=== PATIENT | female | born 1940 | race Caucasian/White ===

== ENCOUNTER 2022-09-01 00:54 | Inpatient (IN) | payer MEDICARE, BC, SELFPAY ==
[2022-09-01] VITALS (23 sets, daily range): BP systolic 98–165; BP diastolic 54–75; PULSE 84–124; RESP 16–22; TEMP 36.8–37.4; O2SAT 89–98; BMI 30.2
--- NOTE | ~2022-09-01 | CT_ITS ---
EXAMINATION: CT brain wo con DATE: 09/01/2022 01:43 INDICATION: Confusion. TECHNIQUE: Computed tomography (CT) of the head was performed without intravenous contrast. The mA wa s adjusted according to patient size. Iterative reconstruction technique was employed. The dose-lengt h product was 605.33 mGy-cm. COMPARISON: None FINDINGS: There are old infarcts in the bilateral basal ganglia. There are scattered areas of low att enuation in the cerebral white matter. There is no intracranial hemorrhage, acute infarction, or abno rmal intracranial mass lesion. There is ex vacuo dilatation of right lateral ventricle. There is mild mucosal thickening in the paranasal sinuses. The mastoid air cells are normal. IMPRESSION: 1. Old infarcts in the bilateral basal ganglia. 2. Moderate nonspecific cerebral white matter disease, which likely represents chronic small vessel i schemic disease. Reviewed, dictated and finalized at location A. IMPRESSION: 1. Old infarcts in the bilateral basal ganglia. 2. Moderate nonspecific cerebral white matter disease, which likely represents chronic small vessel ischemic disease.
--- NOTE | ~2022-09-01 | US_ITS ---
EXAMINATION: US venous doppler LE RT DATE: 09/03/2022 09:14 INDICATION: Right lower limb pain. TECHNIQUE: Grayscale ultrasound images without and with compression and Doppler ultrasound images of the right lower extremity veins were obtained. COMPARISON: None. FINDINGS: The visualized portions of right common femoral vein, profunda (deep) femoral vein, femoral vein, pop liteal vein, peroneal veins, and posterior tibial veins are patent. IMPRESSION: 1. No deep venous thrombosis. Reviewed, dictated and finalized at location B.
--- NOTE | ~2022-09-01 | XR_ITS ---
EXAMINATION: XR chest 1V portable DATE: 09/01/2022 01:43 INDICATION: Altered mental status. Tachypnea. Tachycardia. TECHNIQUE: A single frontal view of the chest was obtained. COMPARISON: None. FINDINGS: Calcified left lung nodules and calcified left hilar lymph nodes are consistent with old gr anulomatous disease. Syed B-lines are noted, consistent with mild pulmonary edema. No pleural effus ion or pneumothorax. The heart size is normal. There is an old healed fracture of left clavicle. IMPRESSION: 1. Mild pulmonary edema. Reviewed, dictated and finalized at location A. IMPRESSION: 1. Mild pulmonary edema.
--- NOTE | 2022-09-01 01:04 | ECG_ITS ---
Measurements Intervals [place] Rate: 121 P: 48 CO: 156 QRS: -9 QRSD: 81 T: 51 QT: 312 QTc: 444 Interpretive Statements SINUS TACHYCARDIA WITH OCCASIONAL SUPRAVENTRICULAR PREMATURE COMPLEXES LOW-VOLTAGE QRS IN PRECORDIAL LEADS NONSPECIFIC ST ABNORMALITY BASELINE ARTIFACT BORDERLINE ECG NO PREVIOUS ECG AVAILABLE FOR COMPARISON Electronically Signed On 09-03-2022 14:28:11 CDT by Lars Dudley M.D.
[2022-09-01 01:17] LABS: Glucose Point of Care 333 mg/dl (65-105)
--- NOTE | 2022-09-01 01:17 | ED.GENADULT ---
HPI - General Adult General Chief complaint: Weakness Stated complaint: Confusion Time Seen by Provider: 09/01/22 01:03 History of Present Illness HPI narrative: Karen is an 81F with a PMH of DMII, anemia, long covid (tachypnea), CHF, and CAD presented to the ED via EMS for altered mental status. She was oriented to self only and could not give additional history. Related Data Home Medications Medication Instructions Recorded Confirmed carvedilol 25 mg tablet 12.5 mg PO Q12H 09/02/22 09/02/22 cyanocobalamin (vitamin B-12) 1,000 mcg PO DAILY 09/02/22 09/02/22 1,000 mcg tablet ferrous sulfate 325 mg (65 mg 325 mg PO DAILY 09/02/22 09/02/22 iron) tablet furosemide 20 mg tablet 10 mg PO DAILY 09/02/22 09/02/22 glipizide 5 mg tablet 5 mg PO DAILY 09/02/22 09/02/22 pravastatin 40 mg tablet 40 mg PO DAILY 09/02/22 09/02/22 sitagliptin 100 mg tablet (Januvia) 100 mg PO DAILY 09/02/22 09/02/22 tramadol 50 mg tablet 50 mg PO Q6H PRN Pain (Scale Score 09/02/22 09/02/22 4-6) triamcinolone acetonide 0.5 % 1 applic topical BID tawny legs 09/02/22 09/02/22 topical cream Allergies Allergy/AdvReac Type Severity Reaction Status Date / Time adhesive tape Allergy Unknown Verified 09/01/22 01:06 Review of Systems Review of Systems: ROS unobtainable: Yes unobtainable due to mental status [facility] Past Medical History Medical History (Updated 09/20/22 @ 08:19 by Johnny Wright DO) Altered mental status Cellulitis of right leg Hypertension UTI (urinary tract infection) Social History Social History Smoking status: Never smoker Alcohol intake: never Substance use: never Substance use type: does not use Spiritual care concerns: No Exam Const: General: confusion and ill appearing chronically Nutritional Appearance: well nourished Orientation/consciousness: patient oriented x3 HENMT: Head: normal to inspection Ears: external ears normal General nose exam: Normal external nose present Face and sinus: normal facial exam Mouth: Yes dry mucous membranes Eyes: Conjunctivae: conjunctivae normal Pupils: Equal, round and reactive pupils present EOM: EOMs intact bilaterally Neck: Neck: normal visual inspection Resp: Effort & Inspection: labored Other: Tachypnea with lungs clear to auscultation bilaterally Cardio: Rate: tachycardic Rhythm: regular rhythm Heart sounds: no murmurs GI: Other: Normal to inspection, normal bowel sounds, No TTP and no guarding : Other: No CVA tenderness Skin: General skin exam: normal color Other: Significant skin tenting Neuro: General: moves all extremities, no focal motor deficits and CN's II-XI intact bilaterally Other: Oriented to self only Extrem: Other: No deformity Course Course Emergency Course: Patient was evaluated as she was brought into the ED. Ordered labs, CT, CXR, EKG, blood cultures and UA and a liter of NS as well as ceftriaxone and azithromycin EKG showed sinus tachycardia with a rate of 121, possible LAD, premature supraventricular complexes. Interpretation is difficult d/t significant baseline interference in several leads Preliminary CT head showed no acute intracranial abnormality and old scattered encephalomalacia. Labs showed no leukocytosis, normal coags, hypoxia on ABG and low CO2, glucose of 333 and BNP of 2918 UA showed blood, nitrites and 3+ leuk esterase. After some fluids she became more alert. We discussed goals of care with her and her family. She is not interested in intubation, pressors and wants to be a DNR but she is amenable to fluids and antibiotics. I discussed the case with Isamar that accepted for admission. Will continue fluids, antibiotics and admit for further care. Vital Signs Vital signs: Vital Signs Pulse Oximetry 89 L 09/01/22 01:08 Temperature 97.2 F L 09/04/22 04:00 Pulse Rate 82 09/04/22 04:00 Respiratory Rate 15
--- NOTE | 2022-09-01 01:46 | PC.NURSE ---
attempted to obtain history, pt & family poor historians
[2022-09-01 02:12] LABS: Base Excess ABG -3.6 mmol/L (0-2); HCO3 ABG 20.2 mmol/L (23-29); Oxygen Content ABG 15.7 %vol (16.0-22.0); Oxyhemoglobin 89.3 % (94-100); PCO2 ABG 32.9 mmHg (35-45); Total Hemoglobin 12.5 g/dL (12.0-18.0); pH ABG 7.41 (7.35-7.45)
[2022-09-01 02:13] LABS: Basophils Absolute Auto 0.02 K/mm3 (0.00-0.10); Basophils Percent Auto 0.2 % (0.0-1.0); Eosinophils Absolute Auto 0.01 K/mm3 (0.02-0.50); Eosinophils Percent Auto 0.1 % (1.0-6.0); Hematocrit 37.2 % (35.0-42.0); Hemoglobin 11.5 g/dL (11.7-13.8); Immature Granulocyte Absolute 0.08 K/mm3 (0.00-0.00); Immature Granulocyte Percent A 0.9 % (0.0-0.0); Lymphocytes Absolute Auto 0.34 K/mm3 (1.10-4.50); Lymphocytes Percent Auto 3.9 % (18.0-42.0); Mean Corpuscular HGB Conc 30.9 g/dL (32.0-36.0); Mean Corpuscular Hemoglobin 26.3 pg (27.0-31.0); Mean Corpuscular Volume 85.1 fL (78.0-102.0); Mean Platelet Volume 10.4 fl (9.2-11.8); Monocytes Absolute Auto 0.22 K/mm3 (0.10-0.90); Monocytes Percent Auto 2.5 % (2.0-11.0); Neutrophils Absolute Auto 8.1 K/mm3 (1.7-7.2); Neutrophils Percent Auto 92.4 % (50.0-70.0); Platelet Count Result 185 K/mm3 (150-420); Red Blood Count 4.37 M/mm3 (4.20-5.40); Red Cell Distribution Width 15.7 % (11.6-14.4); White Blood Count 8.8 K/mm3 (4.8-10.8)
[2022-09-01 02:14] LABS: Modified Allen's Test Pass; Site Drawn RIGHT BRACHIAL
[2022-09-01 02:15] LABS: Device ROOM AIR
[2022-09-01 02:21] LABS: Add Urine Microscopic? YES; Appearance Urine Clear (Clear); Bilirubin Urine Negative (Negative); Blood Urine 3+ (Negative); Color Urine Yellow (Yellow); Glucose Urine UA 3+ (Negative); Ketones Urine 1+ (Negative); Leukocyte Esterase Ur 3+ (Negative); Nitrate Urine Positive (Negative); Protein Urine 1+ (Negative); Urobilinogen Urine 0.2 mg/dL (0.2-1.0)
[2022-09-01] MEDS: SODIUM CHLORIDE 0.9% IV 1,000 ML 999 ML IV CONT (02:22)
[2022-09-01 02:26] LABS: RBC Urine >75 /hpf (0-2); Squamous Epithelial Cell Urine None seen /hpf (Few); WBC Urine >75 /hpf (0-3)
[2022-09-01 02:27] LABS: Bacteria Urine 3+ /hpf
[2022-09-01 02:30] LABS: Amphetamine Screen Urine Negative (Negative); Barbiturate Screen Urine Negative (Negative); Benzodiazepines Screen Urine Negative (Negative); Cannabinoid Screen Urine Negative (Negative); Cocaine Screen Urine Negative (Negative); INR 1.1; Methadone Screen Urine Negative (Negative); Opiate Screen Urine Negative (Negative); Phencyclidine Screen Urine Negative (Negative); Prothrombin Time 11.6 Seconds (9.50-12.10)
[2022-09-01 02:36] LABS: Influenza Control Valid (Valid)
[2022-09-01 02:46] LABS: Alanine Aminotransferase 14 U/L (14-59); Albumin Level 2.5 g/dL (3.4-5.0); Alkaline Phosphatase 84 U/L (46-116); Anion Gap 9 mmol/L (8-16); Aspartate Amino Transferase 15 U/L (15-37); Bilirubin,Total 0.6 mg/dL (0.00-1.00); Blood Urea Nitrogen 35 mg/dL (7-18); Calcium 8.3 mg/dL (8.5-10.1); Carbon Dioxide 25 mmol/L (21-32); Chloride 102 mmol/L (98-108); Estimated Glomerular Filt Rate 33; Glucose 302 mg/dL (70-99); Magnesium 1.7 mg/dL (1.8-2.4); NT Pro B Type Natriuretic Pept 2918 pg/mL (0-450); Osmolality Calculated 301 mOsm/kg (285-295); Potassium 3.8 mmol/L (3.5-5.1); Sodium 136 mmol/L (136-145); Thyroid Stimulating Hormone 2.03 uIU/mL (0.36-3.74); Total Protein 7.4 g/dL (6.4-8.2); Troponin I 57.5 ng/L (0.00-60.4)
[2022-09-01 02:56] LABS: Ethanol < 3 mg/dL (0-6)
[2022-09-01 03:21] LABS: SARS-CoV-2 Ag Negative (Negative)
--- NOTE | 2022-09-01 03:35 | PC.NURSE ---
pt admitted with bolus running with approx 300ml left to infuse
[2022-09-01] MEDS: SODIUM CHLORIDE 0.9% IV 1,000 ML 150 ML IV CONT (04:09)
--- NOTE | 2022-09-01 04:33 | ADMGEN ---
This patient, Karen Anand, was admitted to 2nd Floor Room 226-2. Patient/family oriented to hospital policies and general routines including ID bracelet, bed and alarms, visiting hours, pain management, procedures, bathroom and other care routines, personal items, smoking policy, room service/diet, and visiting hours. Information on how to activate the Rapid Response Team has been discussed. Patient/Family are encouraged to report perceived risks to care and to ask questions if they do not understand what they are told or what they should do. Pt is A&O x3 on arrival to unit, she is able to answer questions appropriately, pt reports feeling very weak and unable to walk or get out of bed recently and son called EMS. Pt is on tlelmetry c Stach noted on monitor and O2 in place via 2L NC c Spo2 at 96%. Pt has call bowen in place at side and encouraged to call if needed. Pt states understanding.
[2022-09-01 08:25] LABS: Glucose Point of Care 337 mg/dl (65-105)
--- NOTE | 2022-09-01 08:29 | PC.NURSE ---
mechanical striper aware of blood sugar 337 and no coverage. unable to verify meds til after 10 am d/t pharmacy not open and patient only knows she is on metformin.
--- NOTE | 2022-09-01 09:47 | PC.NURSE ---
jt from pt aware of needing a pt/ot eval
--- NOTE | 2022-09-01 10:31 | PM.IMHP ---
H&P: HPI History of Present Illness Date/Time: 09/01/22 10:31 Chief Complaint: confusion , UTI Narrative: This is a 82-year-old female that was admitted to the hospital for urinary tract infection and confusion. She has a past medical history of uti,CHF, diabetes, blood clots to the legs, she has increased confusion according to family with inability to get around as well. [place] staying [place]. She is alert and orientated for me with some confusion noted. Patient when assess has very hot with erythema noted to her right leg more than likely the source to her infection . Blood cultures are still pending Patient has remained a febrile and she has been up to chair with assistance. Patient complains of leg pain and painful to touch . We will start patient on IV medication awaiting cultures and follow patient labs Review of Systems Review of Systems: confusion , UTI, Hypertension , diabetes All systems reviewed & are unremarkable except as noted in HPI and below PMFSH Past Medical History Medical History (Updated 09/05/22 @ 11:50 by Mirtha Raymundo NP) Altered mental status Cellulitis of right leg Hypertension UTI (urinary tract infection) Social History Social History Smoking status: Never smoker Alcohol intake: never Substance use: never Substance use type: does not use Spiritual care concerns: No Meds Home Medications and Allergies Home Medications Medication Instructions Recorded Confirmed Type carvedilol 25 mg tablet 12.5 mg PO Q12H 09/02/22 09/02/22 History cyanocobalamin (vitamin B-12) 1,000 mcg PO DAILY 09/02/22 09/02/22 History 1,000 mcg tablet ferrous sulfate 325 mg (65 mg 325 mg PO DAILY 09/02/22 09/02/22 History iron) tablet furosemide 20 mg tablet 10 mg PO DAILY 09/02/22 09/02/22 History glipizide 5 mg tablet 5 mg PO DAILY 09/02/22 09/02/22 History pravastatin 40 mg tablet 40 mg PO DAILY 09/02/22 09/02/22 History sitagliptin 100 mg tablet (Januvia) 100 mg PO DAILY 09/02/22 09/02/22 History tramadol 50 mg tablet 50 mg PO Q6H PRN Pain (Scale Score 09/02/22 09/02/22 History 4-6) triamcinolone acetonide 0.5 % 1 applic topical BID tawny legs 09/02/22 09/02/22 History topical cream apixaban 5 mg tablet (Eliquis) 2.5 mg PO BID #30 tabs 09/04/22 09/02/22 Rx cefdinir 300 mg capsule 300 mg PO Q12HR #20 caps 09/04/22 Rx Allergies Allergy/AdvReac Type Severity Reaction Status Date / Time adhesive tape Allergy Unknown Verified 09/01/22 01:06 Vital Signs Vital Signs - 24 hr 09/01/22 01:09 09/01/22 02:25 09/01/22 01:08 Temperature 98.5 F Pulse Rate 120 H Respiratory Rate 22 H Blood Pressure 165/75 H Pulse Oximetry 92 97 89 L Oxygen Delivery Room Air Nasal Cannula Oxygen Flow Rate 2 Fraction of Inspired Oxygen 09/01/22 01:15 09/01/22 01:15 09/01/22 02:24 Temperature Pulse Rate Respiratory Rate Blood Pressure 158/70 H 104/57 L Pulse Oximetry 89 L 89 L 91 Oxygen Delivery Oxygen Flow Rate Fraction of Inspired Oxygen 09/01/22 02:25 09/01/22 02:30 09/01/22 02:31 Temperature Pulse Rate Respiratory Rate Blood Pressure 117/61 Pulse Oximetry 89 L 96 96 Oxygen Delivery Oxygen Flow Rate 2 Fraction of Inspired Oxygen 09/01/22 02:45 09/01/22 02:46 09/01/22 03:00 Temperature Pulse Rate Respiratory Rate Blood Pressure 116/54 L 108/64 Pulse Oximetry 94 95 96 Oxygen Delivery Oxygen Flow Rate 2 Fraction of Inspired Oxygen 09/01/22 03:01 09/01/22 03:11 09/01/22 03:15 Temperature Pulse Rate Respiratory Rate Blood Pressure 110/59 L Pulse Oximetry 97 98 97 Oxygen Delivery Nasal Cannula Oxygen Flow Rate 2 Fraction of Inspired Oxygen 09/01/22 03:16 09/01/22 04:00 09/01/22 04:30 Temperature Pulse Rate 124 H 107 H 94 Respiratory Rate 20 Blood Pressur
[2022-09-01] MEDS: ceFAZolin 2 GM/D5W 50 ML 2 GM/50 ML BAG IVPB ×2 (10:48→17:24)
[2022-09-01 11:54] LABS: Glucose Point of Care 397 mg/dl (65-105)
[2022-09-01] MEDS: SODIUM CHLORIDE 0.9% IV 1,000 ML 75 ML IV CONT (14:44)
[2022-09-01] MEDS: FUROSEMIDE INJ 40 MG/4 ML VIAL IV PUSH (14:45)
[2022-09-01 20:31] LABS: Glucose Point of Care 204 mg/dl (65-105)
[2022-09-01 21:36] LABS: Glucose Point of Care 166 mg/dl (65-105)
[2022-09-01] MEDS: ACETAMINOPHEN 325 MG TABLET 650 MG PO (21:37)
[2022-09-02] VITALS (11 sets, daily range): BP systolic 111–138; BP diastolic 65–80; PULSE 75–94; RESP 14–18; TEMP 36.3–36.7; O2SAT 95–100
--- NOTE | 2022-09-02 00:58 | PC.NURSE ---
Chemistry called with a positive blood culture result from [facility]. Results indicate gram positive cocci in chains, flagged as critical abnormal. Called ASSOCIATE [employer] and reported these findings. [employer] asked about antibiotics patient is currently taking, and stated that she would make any changes necessary in the morning.
--- NOTE | 2022-09-02 01:13 | PC.NURSE ---
Chemistry called, and indicated that patient has gram positive cocci in chains present in both anaerobic and aerobic bottles, in both samples. PCT notified.
[2022-09-02] MEDS: ceFAZolin 2 GM/D5W 50 ML 2 GM/50 ML BAG IVPB ×3 (01:34→18:13)
[2022-09-02] MEDS: SODIUM CHLORIDE 0.9% IV 1,000 ML 75 ML IV CONT (04:00)
[2022-09-02 05:13] LABS: Hematocrit 32.5 % (35.0-42.0); Mean Corpuscular HGB Conc 30.8 g/dL (32.0-36.0); Mean Corpuscular Hemoglobin 26.5 pg (27.0-31.0); Mean Platelet Volume 10.4 fl (9.2-11.8); Platelet Count Result 170 K/mm3 (150-420); Red Blood Count 3.78 M/mm3 (4.20-5.40); Red Cell Distribution Width 15.9 % (11.6-14.4); White Blood Count 10.8 K/mm3 (4.8-10.8)
[2022-09-02 05:48] LABS: Alanine Aminotransferase 7 U/L (14-59); Alkaline Phosphatase 60 U/L (46-116); Anion Gap 7 mmol/L (8-16); Aspartate Amino Transferase 11 U/L (15-37); Bilirubin,Total 0.2 mg/dL (0.00-1.00); Blood Urea Nitrogen 37 mg/dL (7-18); Calcium 7.6 mg/dL (8.5-10.1); Carbon Dioxide 27 mmol/L (21-32); Chloride 104 mmol/L (98-108); Estimated CRCL calculation 29 ml/min; Estimated Glomerular Filt Rate 32; Glucose 152 mg/dL (70-99); Osmolality Calculated 297 mOsm/kg (285-295); Potassium 4.2 mmol/L (3.5-5.1); Sodium 138 mmol/L (136-145); Total Protein 6.1 g/dL (6.4-8.2)
[2022-09-02 08:03] LABS: Glucose Point of Care 156 mg/dl (65-105)
[2022-09-02] MEDS: FUROSEMIDE INJ 40 MG/4 ML VIAL 20 MG IV PUSH (09:27)
--- NOTE | 2022-09-02 10:17 | PM.IMPN ---
Progress Note: A&P Assessment and Plan (1) Diabetes: Code(s): E11.9 - Type 2 diabetes mellitus without complications Status: Acute Assessment and Plan: Monitor blood sugars Hold all oral hypoglycemic Sliding scale (2) Hypertension: Code(s): I10 - Essential (primary) hypertension Status: Acute Assessment and Plan: Monitor blood pressure Give home medications Adjust medications accordingly (3) Cellulitis of right leg: Code(s): L03.115 - Cellulitis of right lower limb Status: Acute Assessment and Plan: Right leg red hot to touch and swollen Started on cefazolin every 8 hours Positive blood cultures gram-positive cocci in chains Consult infectious disease pharmacist Dopplers of bilateral leg in a.m. On oxygen possibly due to seen sepsis we will continue to wean (4) UTI (urinary tract infection): Code(s): N39.0 - Urinary tract infection, site not specified Status: Acute Assessment and Plan: Rocephin initiated X2 doses discontinued patient currently on cefazolin (5) Altered mental status: Code(s): R41.82 - Altered mental status, unspecified Status: Acute Assessment and Plan: More than likely due to bacteremia Continue IV antibiotics Continue to monitor cognition Patient high risk for falls (6) Dyspnea: Code(s): R06.00 - Dyspnea, unspecified Status: Acute Assessment and Plan: On oxygen we will continue to wean Possibly short of breath due to bacteremia of the blood Subjective Date/time seen: 09/02/22 10:17 Interval history: Patient slightly confused today in bed denies any pain. Patient is on oxygen at 1 L we will continue to wean. Patient will get up in recliner chair her leg looks slightly better than yesterday no we will continue to monitor patient blood cultures are positive on IV antibiotics we will continue to monitor we will discuss plan with infectious disease pharmacist and have Dopplers completed in the a.m. Review of Systems Review of Systems: leg pain, confusion, All systems reviewed & are unremarkable except as noted in HPI and below Exam Narrative: GENERAL:Well-appearing, obese, and in no acute distress. HEAD:Normocephalic, atraumatic. EYES: PERRLA ENT: Nares clear, no rhinorrhea. Mucous membranes moist. NECK: Supple. CHEST: Clear to auscultation. No respiratory distress. HEART: Regular rate and rhythm. decreased peripheral pulses. ABDOMEN: Soft, nontender, nondistended, normal active bowel sounds. EXTREMITIES: Normal range of motion. 2+ pitting edema right lower extremity hot to touch with erythema left leg pink with some peripheral vascular disease noted SKIN: Warm, dry, no rash. NEURO: No focal deficits. Alert and oriented x1-2. Objective Data Vital Signs Vital Signs: Vital Signs - 24 hr 09/01/22 12:00 09/01/22 14:00 09/01/22 16:00 Temperature 98.2 F Pulse Rate 84 94 85 Respiratory Rate 16 Blood Pressure 104/60 Pulse Oximetry 95 Oxygen Delivery Room Air Oxygen Flow Rate 09/01/22 20:00 09/01/22 20:00 09/01/22 22:00 Temperature 98.9 F Pulse Rate 92 85 91 Respiratory Rate 16 16 Blood Pressure 98/66 L Pulse Oximetry 98 98 Oxygen Delivery Nasal Cannula Nasal Cannula Oxygen Flow Rate 1 1 09/02/22 00:00 09/02/22 04:00 09/02/22 06:00 Temperature 97.4 F L Pulse Rate 94 83 82 Respiratory Rate 18 Blood Pressure 127/65 Pulse Oximetry 98 Oxygen Delivery Nasal Cannula Oxygen Flow Rate 1 09/02/22 08:00 Temperature Pulse Rate 90 Respiratory Rate Blood Pressure Pulse Oximetry Oxygen Delivery Oxygen Flow Rate Intake/Output Intake/Output: Intake & Output 08/30/22 08/31/22 09/01/22 09/02/22 23:59 23:59 23:59 23:59 Intake Total 2820 1705 Output Total 600 550 Balance 2220 1155 Meds/Results Medications: Active Medications Generic Name Dose Route Start Last Admin Tra
[2022-09-02] MEDS: APIXABAN 2.5 MG TABLET PO (11:16)
[2022-09-02] MEDS: carvediloL 12.5 MG TABLET PO ×2 (11:17→21:22)
[2022-09-02 11:41] LABS: Glucose Point of Care 210 mg/dl (65-105)
--- NOTE | 2022-09-02 11:49 | PC.NURSE ---
Patient up to bedside chair with arturo lauren and assist of 2
[2022-09-02 16:24] LABS: Glucose Point of Care 260 mg/dl (65-105)
[2022-09-02] MEDS: ACETAMINOPHEN 325 MG TABLET 650 MG PO (21:22)
[2022-09-02 21:27] LABS: Glucose Point of Care 243 mg/dl (65-105)
[2022-09-03] VITALS: BP 113/77; PULSE 78; PULSE 82; RESP 16; TEMP 36.4; O2SAT 96
[2022-09-03] MEDS: ceFAZolin 2 GM/D5W 50 ML 2 GM/50 ML BAG IVPB ×2 (01:27→11:24)
[2022-09-03 04:00] VITALS: BP 132/75; PULSE 81; PULSE 83; RESP 16; TEMP 36.1; O2SAT 95
[2022-09-03 05:24] LABS: Basophils Absolute Auto 0.04 K/mm3 (0.00-0.10); Basophils Percent Auto 0.5 % (0.0-1.0); Eosinophils Absolute Auto 0.13 K/mm3 (0.02-0.50); Eosinophils Percent Auto 1.6 % (1.0-6.0); Hematocrit 32.5 % (35.0-42.0); Hemoglobin 10.2 g/dL (11.7-13.8); Immature Granulocyte Absolute 0.09 K/mm3 (0.00-0.00); Immature Granulocyte Percent A 1.1 % (0.0-0.0); Lymphocytes Absolute Auto 1.86 K/mm3 (1.10-4.50); Lymphocytes Percent Auto 23.1 % (18.0-42.0); Mean Corpuscular HGB Conc 31.4 g/dL (32.0-36.0); Mean Corpuscular Hemoglobin 26.5 pg (27.0-31.0); Mean Corpuscular Volume 84.4 fL (78.0-102.0); Mean Platelet Volume 10.3 fl (9.2-11.8); Monocytes Percent Auto 9.9 % (2.0-11.0); Neutrophils Absolute Auto 5.1 K/mm3 (1.7-7.2); Neutrophils Percent Auto 63.8 % (50.0-70.0); Platelet Count Result 199 K/mm3 (150-420); Red Blood Count 3.85 M/mm3 (4.20-5.40); Red Cell Distribution Width 15.6 % (11.6-14.4); White Blood Count 8.1 K/mm3 (4.8-10.8)
[2022-09-03 05:35] LABS: Anion Gap 9 mmol/L (8-16); Blood Urea Nitrogen 26 mg/dL (7-18); Calcium 7.6 mg/dL (8.5-10.1); Carbon Dioxide 26 mmol/L (21-32); Chloride 103 mmol/L (98-108); Estimated CRCL calculation 35 ml/min; Estimated Glomerular Filt Rate 40; Glucose 207 mg/dL (70-99); Osmolality Calculated 296 mOsm/kg (285-295); Potassium 3.4 mmol/L (3.5-5.1); Sodium 138 mmol/L (136-145)
[2022-09-03 08:00] VITALS: BP 140/75; PULSE 84; PULSE 86; RESP 14; TEMP 36.8; O2SAT 96
[2022-09-03] MEDS: CYANOCOBALAMIN 1,000 MCG TABLET 1000 MCG PO (08:09)
[2022-09-03 08:15] LABS: Glucose Point of Care 201 mg/dl (65-105)
--- NOTE | 2022-09-03 08:33 | IDPHARM ---
[facility] was consulted by Kathya Raymundo regarding infectious diseases for Karen Anand. Karen Anand is a 82 year old F with concerns regarding bloodstream infection. Background The patient is currently receiving Cefazolin IV.The patient presented with fire truck red cellulitis and notes mention potential UTI. Blood cultures show growth of GPC in chains and urine culture is pending at this time. Additionally, patient with fairly stable WBC at 8.1 today. Spoke with [facility] microbiology department and they state that the isolate from 09/01/22 is positive for beta-hemolytic Group B Streptococcus species. They will be releasing this info into the EMR per the auto claim representative. Per them, sensitivities expected perhaps tomorrow. Assessment/Recommendation/Discussion Spoke twice with provider. First discussion focused on identifying source for these GPC's in chains in the blood and provider believes that this may be a cellulitis source which is showing notable improvement in coloration. Patient's vitals also do not show SIRS criteria being met [97 degrees F, Pulse 81 BPM, Respiratory rate of 16 Breaths/minute, WBC of 8.1 - meeting 0/4 sirs criteria]. Spoke again with provider after speaking with [facility] regarding pathogen identification. Recommended consolidating therapy to ceftriaxone 2g q24h and provider agrees. Thank you for the interesting consult. Moises Smith, PharmD Infectious Disease/Antimicrobial Stewardship Pharmacist 09/03/22; [id number]
--- NOTE | 2022-09-03 08:46 | PM.IMPN ---
Progress Note: A&P Assessment and Plan (1) Diabetes: Code(s): E11.9 - Type 2 diabetes mellitus without complications Status: Acute Assessment and Plan: Monitor blood sugars Hold all oral hypoglycemic Sliding scale (2) Hypertension: Code(s): I10 - Essential (primary) hypertension Status: Acute Assessment and Plan: Monitor blood pressure Give home medications Adjust medications accordingly Pt Eliquis on pts medication say once a day. I called her PCP Dr. Severino office and they informed me she should take is twice a day (3) Cellulitis of right leg: Code(s): L03.115 - Cellulitis of right lower limb Status: Acute Assessment and Plan: Right leg red hot to touch and swollen Started on cefazolin every 8 hours Positive blood cultures gram-positive cocci in chains Consult infectious disease pharmacist changed from cefazolin to Rocephin 2g q 24 after discussion with infectious disease pharmacist Dopplers of bilateral leg in a.m. On oxygen possibly due to seen sepsis we will continue to wean (4) UTI (urinary tract infection): Code(s): N39.0 - Urinary tract infection, site not specified Status: Acute Assessment and Plan: Rocephin initiated X2 doses discontinued patient currently on cefazolin (5) Altered mental status: Code(s): R41.82 - Altered mental status, unspecified Status: Acute Assessment and Plan: More than likely due to bacteremia Continue IV antibiotics Continue to monitor cognition Patient high risk for falls (6) Dyspnea: Code(s): R06.00 - Dyspnea, unspecified Status: Acute Assessment and Plan: On oxygen we will continue to wean Possibly short of breath due to bacteremia of the blood Subjective Date/time seen: 09/03/22 08:46 Interval history: Patient is less confused today and she has been weaned off of the oxygen. Patient is feeding herself. I called patient pcp as she indicates she is to be on elequis 2.5mg daily. DR. Severino office has informed me she should be taking the medication twice a day. Patient leg is looking a lot better. I also spoke with infectious disease doctor who called the lab. We will be switching patient from Cefazolin to Rocephin 2gm daily at this time. Patient kidney function continues to improve at this time. 09/02/2022atient slightly confused today in bed denies any pain. Patient is on oxygen at 1 L we will continue to wean. Patient will get up in recliner chair her leg looks slightly better than yesterday no we will continue to monitor patient blood cultures are positive on IV antibiotics we will continue to monitor we will discuss plan with infectious disease pharmacist and have Dopplers completed in the a.m. Exam Narrative: GENERAL:Well-appearing, obese, and in no acute distress. HEAD:Normocephalic, atraumatic. EYES: PERRLA ENT: Nares clear, no rhinorrhea. Mucous membranes moist. NECK: Supple. CHEST: Clear to auscultation. No respiratory distress. HEART: Regular rate and rhythm. decreased peripheral pulses. ABDOMEN: Soft, nontender, nondistended, normal active bowel sounds. EXTREMITIES: Normal range of motion. 1+ pitting edema right lower extremity warm to touch with less erythema and improvement is significant left leg pink with some peripheral vascular disease noted SKIN: Warm, dry, no rash. NEURO: No focal deficits. Alert and oriented x1-2. Objective Data Vital Signs Vital Signs: Vital Signs - 24 hr 09/02/22 11:17 09/02/22 12:00 09/02/22 12:03 Temperature 97.9 F Pulse Rate 75 92 92 Respiratory Rate 14 Blood Pressure 133/80 Pulse Oximetry 100 Oxygen Delivery Room Air Fraction of Inspired Oxygen 09/02/22 16:00 09/02/22 16:00 09/02/22 21:22 Temperature 97.9 F Pulse Rate 90 90 92 Respiratory Rate 14 Blood Pressure 111/73 Pulse Oximetry 100 Oxygen Delivery Room Air Fraction of Inspired Oxygen 1
[2022-09-03] MEDS: TOLNAFTATE 1% POWDER 45 GM BTL 1 APPLIC TOPICAL ×2 (09:10→20:10)
[2022-09-03] MEDS: APIXABAN 2.5 MG TABLET PO ×2 (09:15→20:09)
[2022-09-03] MEDS: FUROSEMIDE INJ 40 MG/4 ML VIAL 20 MG IV PUSH (10:09)
[2022-09-03 12:00] VITALS: BP 150/75; PULSE 78; PULSE 83; RESP 16; TEMP 37.1; O2SAT 96
[2022-09-03 12:04] LABS: Glucose Point of Care 263 mg/dl (65-105)
[2022-09-03 16:00] VITALS: BP 136/83; PULSE 70; PULSE 92; RESP 16; TEMP 36.4; O2SAT 98
[2022-09-03 16:24] LABS: Glucose Point of Care 308 mg/dl (65-105)
[2022-09-03 19:57] LABS: Glucose Point of Care 306 mg/dl (65-105)
[2022-09-03 20:00] VITALS: BP 166/80; PULSE 85; RESP 16; TEMP 36.6; O2SAT 96
[2022-09-03] MEDS: traMADol HCL (*CRX) 50 MG TABLET PO (20:09)
[2022-09-04] VITALS: BP 152/69; PULSE 87; RESP 16; TEMP 36.4; O2SAT 95
[2022-09-04 04:00] VITALS: BP 152/70; PULSE 82; RESP 15; TEMP 36.2; O2SAT 95
[2022-09-04 05:35] LABS: Basophils Absolute Auto 0.04 K/mm3 (0.00-0.10); Basophils Percent Auto 0.6 % (0.0-1.0); Eosinophils Absolute Auto 0.12 K/mm3 (0.02-0.50); Eosinophils Percent Auto 1.8 % (1.0-6.0); Hematocrit 34.1 % (35.0-42.0); Hemoglobin 10.7 g/dL (11.7-13.8); Immature Granulocyte Absolute 0.12 K/mm3 (0.00-0.00); Immature Granulocyte Percent A 1.8 % (0.0-0.0); Lymphocytes Absolute Auto 1.57 K/mm3 (1.10-4.50); Lymphocytes Percent Auto 23.7 % (18.0-42.0); Mean Corpuscular HGB Conc 31.4 g/dL (32.0-36.0); Mean Corpuscular Hemoglobin 26.1 pg (27.0-31.0); Mean Corpuscular Volume 83.2 fL (78.0-102.0); Monocytes Absolute Auto 0.79 K/mm3 (0.10-0.90); Monocytes Percent Auto 11.9 % (2.0-11.0); Neutrophils Percent Auto 60.2 % (50.0-70.0); Platelet Count Result 233 K/mm3 (150-420); Red Cell Distribution Width 15.3 % (11.6-14.4); White Blood Count 6.6 K/mm3 (4.8-10.8)
[2022-09-04 06:00] LABS: Alanine Aminotransferase 7 U/L (14-59); Alkaline Phosphatase 81 U/L (46-116); Anion Gap 10 mmol/L (8-16); Aspartate Amino Transferase 14 U/L (15-37); Bilirubin,Total 0.3 mg/dL (0.00-1.00); Blood Urea Nitrogen 20 mg/dL (7-18); CRP 9.2 mg/dL (0.0-0.9); Calcium 7.8 mg/dL (8.5-10.1); Carbon Dioxide 26 mmol/L (21-32); Chloride 102 mmol/L (98-108); Estimated CRCL calculation 38 ml/min; Estimated Glomerular Filt Rate 45; Glucose 222 mg/dL (70-99); Osmolality Calculated 295 mOsm/kg (285-295); Potassium 3.2 mmol/L (3.5-5.1); Sodium 138 mmol/L (136-145); Total Protein 6.4 g/dL (6.4-8.2)
[2022-09-04] MEDS: POTASSIUM CHLORIDE 10 MEQ TABLET PO (08:30)
[2022-09-04] MEDS: FUROSEMIDE INJ 40 MG/4 ML VIAL 20 MG IV PUSH (09:53)
[2022-09-04] MEDS: CYANOCOBALAMIN 1,000 MCG TABLET 1000 MCG PO (09:55)
[2022-09-04] MEDS: APIXABAN 2.5 MG TABLET PO (09:55)
--- NOTE | 2022-09-04 11:45 | PM.DS ---
DS: Admitting Diagnosis Discharge Date 09/04/2022 Admitting Diagnosis UTI , alter mental status DS: Discharge Diagnosis Discharge Diagnosis (1) Septicemic: Code(s): A41.9 - Sepsis, unspecified organism Status: Acute Assessment and Plan: Positive blood culture for gram positive chong w chains Cefzolin IV and Rophein monitor for fever and tx monitor (2) Hypertension: Code(s): I10 - Essential (primary) hypertension Status: Acute Assessment and Plan: continue to monitor your blood pressure continue to give home medication change medication accordingly Continue Eliquis bid according to Dr. Severino family was giving wrong dosage (3) Diabetes: Code(s): E11.9 - Type 2 diabetes mellitus without complications Status: Acute Assessment and Plan: check blood sugar sliding scale insulin check hemoglobin A1C adjust insulin accordingly carb consistent diet (4) Cellulitis of right leg: Code(s): L03.115 - Cellulitis of right lower limb Status: Acute Assessment and Plan: Keelp leg elevated and monitor for worsening and or improvement IV antibiotics keep area clean and dry Plan DS: Summary Hospital Course Reason for hospitalization: Cellulitis , UTI , Septicimia Hospital Course: This is a year 82 old that was admitted with alter mental status and uti. patient has a pmh of htn, dm, covid,alter mental status. Patient was found to have cellulitis of the right leg and had positive blood cultures. Patient started to receive IV antibiotic , IV fluids and required a short peorid of oxygen. Patient mental status improved she has some underlying intermittent confusion. Patient had a Doppler which resulted negative for blood clot. Mrs Anand has continued to improve has worked well with physical therapy although she would benefit from more therapy she has declined swing bed. Patient has remained a febrile and labs has continued to improve she is eating without difficulties. Patient will need 10 days of Omnicef per ID pharmacist recommendation . Cellulitis of leg has improved barley any redness noted. Time Spent with Patient Time attestation: Total time spent providing and/or coordinating discharge services: Exam Narrative: General : Alert and oriented with some confusion noted Chest; lungs clear, diminished on lower right abdomin: Soft po GENERAL:Well-appearing, obese, and in no acute distress. HEAD:Normocephalic, atraumatic. EYES: PERRLA ENT:? Nares clear, no rhinorrhea. Mucous membranes moist. NECK:? Supple. CHEST:? Clear to auscultation. No respiratory distress. HEART:? Regular rate and rhythm. ? decreased peripheral pulses. ABDOMEN:? Soft, nontender, nondistended, normal active bowel sounds. EXTREMITIES: Normal range of motion.? 1+ pitting edema right lower extremity warm to touch with less erythema and improvement is significant? left leg pink with some peripheral vascular disease noted SKIN:? Warm, dry, no rash. NEURO: No focal deficits. Alert and oriented x1-2. ? DS: Data Data Completed and Pending Labs on day of discharge: Labs from last 24 hours 09/04/22 09/04/22 09/03/22 05:22 05:22 19:50 WBC 6.6 RBC 4.10 L Hgb 10.7 L Hct 34.1 L MCV 83.2 MCH 26.1 L MCHC 31.4 L RDW 15.3 H Plt Count 233 MPV 10.0 Immature Gran % (Auto) 1.8 H Neut % (Auto) 60.2 Lymph % (Auto) 23.7 [place] % (Auto) 11.9 H Eos % (Auto) 1.8 Baso % (Auto) 0.6 Lymph # (Auto) 1.57 [place] # (Auto) 0.79 Eos # (Auto) 0.12 Baso # (Auto) 0.04 Abs Immat Gran (auto) 0.12 H Absolute Neuts (auto) 4.0 Absolute Nucleated RBC 0.00 Nucleated RBC % 0.0 Sodium 138 Potassium 3.2 L Chloride 102 Carbon Dioxide 26 Anion Gap 10 BUN 20 H Creatinine 1.16 H Estim Creat Clear Calc 38 Estimated GFR 45 L Glucose 222 H POC Capillary Glucose 306 H Calculated [place]
[2022-09-04 12:00] LABS: Glucose Point of Care 278 mg/dl (65-105)
--- NOTE | 2022-09-05 11:15 | PC.NURSE ---
Daughter in law states the patient received and understood the discharge instructions. DIL also states everything seemed okay .
== END 2022-09-04 12:15 | disposition home health service (06) | DRG 872 ==
LOC: CHSED 01:17 → CHS2ND 08:46
PROVIDERS: Nurse Practitioner Family; Admitting Provider Internal Medicine; Emergency Provider Family Medicine; Visit Provider Internal Medicine
DX: N39.0 Urinary tract infection, site not specified (principal); I11.0 Hypertensive heart disease with heart failure; I50.9 Heart failure, unspecified; I25.10 Atherosclerotic heart disease of native coronary artery without angina pectoris; E11.9 Type 2 diabetes mellitus without complications; R06.82 Tachypnea, not elsewhere classified; U09.9 Post COVID-19 condition, unspecified; Z79.84 Long term (current) use of oral hypoglycemic drugs; Z79.899 Other long term (current) drug therapy; Z20.822 Contact with and (suspected) exposure to COVID-19; A40.1 Sepsis due to streptococcus, group B; L03.115 Cellulitis of right lower limb; I73.9 Peripheral vascular disease, unspecified; E11.51 Type 2 diabetes mellitus with diabetic peripheral angiopathy without gangrene; Z86.718 Personal history of other venous thrombosis and embolism; Z79.01 Long term (current) use of anticoagulants
CPT/HCPCS: 36415; 36600; 70450; 71045; 80048; 80053; 80307; 81001; 82805; 82948; 83605; 83735; 83880; 84443; 84484; 85025; 85027; 85610; 86140; 87040; 87086; 87147; 87186; 87426; 87804; 93005; 93971; 96361; 96374; 97110; 97162; 97165; 97530; 97535; 99285; A9270; C9803; J0456; J0690; J0696; J1815; J1940; J7030

== ENCOUNTER 2023-01-24 13:17 | Emergency (ER) | payer MEDICARE, BC, SELFPAY ==
--- NOTE | ~2023-01-24 | XR_ITS ---
XR humerus RT 01/24/2023 14:13 INDICATION: Right humerus pain PROCEDURE: 2 views right humerus COMPARISON: No prior studies for comparison. FINDINGS: Fracture, dislocation or subluxation is not identified. The soft tissues appear within norm al limits. No foreign bodies are identified. IMPRESSION: 1: NO ACUTE BONE OR JOINT ABNORMALITY IDENTIFIED. Reviewed, dictated and finalized at location L. TYING MACHINE KNOTTER
--- NOTE | ~2023-01-24 | XR_ITS ---
XR ankle RT 2V 01/24/2023 14:12 Indication: Right ankle pain after recent fall Procedure: 2 views right ankle Comparison: No prior studies for comparison. Findings: There is a degenerative calcaneal enthesophyte at the plantar surface. There are vascular c alcifications. There is osteopenia. Ankle mortise intact. Talar dome is unremarkable. No foreign bodi es. No acute fracture or traumatic malalignment. Impression: 1: No acute fracture. Reviewed, dictated and finalized at location L. GRAPH SERVICE CLERK Impression: 1: No acute fracture.
[2023-01-24 13:29] VITALS: BP 154/72; PULSE 85; TEMP 35.7; O2SAT 100
[2023-01-24 13:35] VITALS: BP 137/66; PULSE 89; RESP 18; TEMP 36.2; O2SAT 100
--- NOTE | 2023-01-24 14:23 | ED.FALL ---
HPI - Fall General Chief Complaint: Fall Stated Complaint: fall Time Seen by Provider: 01/24/23 13:28 Source: patient and family Mode of arrival: ambulatory Limitations: no limitations History of Present Illness HPI Narrative: this is an 82-year-old [facility] patient was using her walker and tripped and fell injuring her right mid upper arm and her right ankle pain level is tolerable when resting, otherwise are some mild bruising to the right mid arm, has good range of motion although little diminished diminished secondary to pain. Otherwise no lightheadedness no dizziness no chest pain no shortness of breath no fever chills. complaint: fall Onset (ago): hour(s) Fall from: standing Fall witnessed: no Place fall occurred: [facility] Loss of consciousness: none Prolonged down time: no Symptoms prior to fall: none Context: tripped/slipped Related Data Home Medications Medication Instructions Recorded Confirmed carvedilol 25 mg tablet 12.5 mg PO Q12H 09/02/22 09/02/22 cyanocobalamin (vitamin B-12) 1,000 mcg PO DAILY 09/02/22 09/02/22 1,000 mcg tablet ferrous sulfate 325 mg (65 mg 325 mg PO DAILY 09/02/22 09/02/22 iron) tablet furosemide 20 mg tablet 10 mg PO DAILY 09/02/22 09/02/22 glipizide 5 mg tablet 5 mg PO DAILY 09/02/22 09/02/22 pravastatin 40 mg tablet 40 mg PO DAILY 09/02/22 09/02/22 sitagliptin phosphate 100 mg 100 mg PO DAILY 09/02/22 09/02/22 tablet (Januvia) tramadol 50 mg tablet 50 mg PO Q6H PRN Pain (Scale Score 09/02/22 09/02/22 4-6) triamcinolone acetonide 0.5 % 1 applic topical BID tawny legs 09/02/22 09/02/22 topical cream Allergies Allergy/AdvReac Type Severity Reaction Status Date / Time adhesive tape Allergy Unknown Verified 09/01/22 01:06 Review of Systems Review of Systems: All systems reviewed & are unremarkable except as noted in HPI and below PMFSH Past Medical History Medical History Altered mental status Cellulitis of right leg Hypertension UTI (urinary tract infection) Social History Social History Smoking status: Never smoker Alcohol intake: never Substance use: never Substance use type: does not use Spiritual care concerns: No Exam Const: General: healthy appearing Nutritional Appearance: well nourished Orientation/consciousness: patient oriented x3 Limitations: no limitations HENMT: Head: normal to inspection Face and sinus: normal facial exam Mouth: Yes Normal oral and palatal mucosa present Eyes: Conjunctivae: conjunctivae normal Pupils: Equal, round and reactive pupils present EOM: EOMs intact bilaterally Direct Ophthalmoscopy: no photophobia Neck: Neck: normal visual inspection Chest: Chest palpation & inspection: normal inspection of the chest Resp: Effort & Inspection: normal respiratory effort Auscultation: clear to auscultation bilaterally Cardio: Rate: regular rate Rhythm: regular rhythm GI: Inspection: distended : General: Yes bladder normal to palpation Urinary Catheter: Urinary Catheter: patent and draining Skin: General skin exam: normal color Rashes: no rashes Neuro: General: patient oriented x3 Cranial nerves: Yes Nystagmus not present Extrem: General: normal to inspection Psych: Mental Status: mental status grossly normal Affect: normal affect Course Course Emergency Course: X-rays reviewed with patient and family with no acute fractures advised to take Tylenol as needed. Vital Signs Vital signs: Vital Signs Temperature 35.7 C L 01/24/23 13:29 Pulse Rate 85 01/24/23 13:29 Blood Pressure 154/72 H 01/24/23 13:29 Pulse Oximetry 100 01/24/23 13:29 Oxygen Delivery Room Air 01/24/23 13:29 Temperature 35.7 C L 01/24/23 13:29 Pulse Rate 85 01/24/23 13:29 Blood Pressure 154/72 H 01/24/23 13:29 Pulse Oximetry 100 01/24/23 13:29 Oxygen Delivery Room A
[2023-01-24 14:31] VITALS: BP 142/70; PULSE 83; TEMP 36.1; O2SAT 99
--- NOTE | 2023-01-24 15:14 | PC.NURSE ---
On 01/24/23, the student, [ESTRELLA MAZARIEGOS ], provided care and completed [facility] documentation on this patient. I have reviewed the student's documentation and agree with the findings.
== END 2023-01-24 15:13 | disposition home or self-care (01) ==
PROVIDERS: Emergency Provider Emergency Medicine
DX: S49.91XA Unspecified injury of right shoulder and upper arm, initial encounter (principal); S99.911A Unspecified injury of right ankle, initial encounter; W01.0XXA Fall on same level from slipping, tripping and stumbling without subsequent striking against object, initial encounter; I10 Essential (primary) hypertension; Z79.84 Long term (current) use of oral hypoglycemic drugs; Z79.01 Long term (current) use of anticoagulants
CPT/HCPCS: 73060; 73600; 99283

== ENCOUNTER 2024-02-13 15:21 | Emergency (ER) | payer MEDICARE, BC, SELFPAY ==
[2024-02-13 15:34] VITALS: BP 160/79; PULSE 85; RESP 20; TEMP 36.9; O2SAT 99
[2024-02-13 16:14] LABS: Basophils Absolute Auto 0.05 K/mm3 (0.00-0.10); Basophils Percent Auto 0.7 % (0.0-1.0); Eosinophils Absolute Auto 0.19 K/mm3 (0.02-0.50); Eosinophils Percent Auto 2.8 % (1.0-6.0); Hematocrit 33.8 % (35.0-42.0); Hemoglobin 10.5 g/dL (11.7-13.8); Immature Granulocyte Absolute 0.03 K/mm3 (0.00-0.00); Immature Granulocyte Percent A 0.4 % (0.0-0.0); Lymphocytes Absolute Auto 1.48 K/mm3 (1.10-4.50); Lymphocytes Percent Auto 21.9 % (18.0-42.0); Mean Corpuscular HGB Conc 31.1 g/dL (32-36); Mean Corpuscular Hemoglobin 28.7 pg (27.0-31.0); Mean Corpuscular Volume 92.3 fL (78.0-102.0); Mean Platelet Volume 9.5 fl (9.2-11.8); Monocytes Absolute Auto 0.56 K/mm3 (0.10-0.90); Monocytes Percent Auto 8.3 % (2.0-11.0); Neutrophils Absolute Auto 4.45 K/mm3 (1.70-7.20); Neutrophils Percent Auto 65.9 % (50.0-70.0); Platelet Count Result 212 K/mm3 (150-420); Red Blood Count 3.66 M/mm3 (4.20-5.40); Red Cell Distribution Width 13.2 % (11.6-14.4); White Blood Count 6.8 K/mm3 (4.8-10.8)
[2024-02-13 16:18] LABS: Appearance Urine Cloudy (Clear); Bilirubin Urine Negative (Negative); Blood Urine 3+ (Negative); Color Urine Light Yellow (Yellow); Glucose Urine UA 1+ (Negative); Ketones Urine Negative (Negative); Leukocyte Esterase Ur 2+ LEU/UL (Negative); Nitrate Urine Negative (Negative); Protein Urine Trace (Negative); Specific Grav Ur 1.025 (1.010-1.020); pH Urine 5.5 (5.0-8.0)
[2024-02-13 16:24] LABS: Add Urine Microscopic? YES; Bacteria Urine 2+ /hpf; RBC Urine 21-50 /hpf (0-2); Squamous Epithelial Cell Urine Few /hpf (Few); WBC Urine >75 /hpf (0-3)
[2024-02-13 16:30] LABS: Alanine Aminotransferase 17 U/L (14-59); Albumin Level 2.8 g/dL (3.4-5.0); Alkaline Phosphatase 92 U/L (46-116); Anion Gap 9 mmol/L (8-16); Aspartate Amino Transferase 16 U/L (15-37); Bilirubin,Total 0.4 mg/dL (0.00-1.00); Blood Urea Nitrogen 43 mg/dL (7-18); Carbon Dioxide 26 mmol/L (21-32); Chloride 103 mmol/L (98-108); Estimated CRCL calculation 24 ml/min; Estimated Glomerular Filt Rate 25; Glucose 251 mg/dL (70-99); Osmolality Calculated 304 mOsm/kg (285-295); Potassium 4.6 mmol/L (3.5-5.1); Sodium 138 mmol/L (136-145); Total Protein 6.8 g/dL (6.4-8.2)
--- NOTE | 2024-02-13 16:40 | ED.FEMALEGU ---
HPI - Female Genitourinary General Chief complaint: Urogenital-Female Stated complaint: UTI Symptoms Time Seen by Provider: 02/13/24 15:36 Source: patient and family Mode of arrival: ambulatory Limitations: no limitations History of Present Illness HPI Narrative: years is an 83-year-old female with frequent urinary tract infections presented with dysuria no hematuria no fever chills no flank pain no nausea vomiting. MD elicited complaint: dysuria Onset (ago): day(s) Severity: mild Related Data Home Medications Medication Instructions Recorded Confirmed carvedilol 25 mg tablet 12.5 mg PO Q12H 09/02/22 09/02/22 cyanocobalamin (vitamin B-12) 1,000 mcg PO DAILY 09/02/22 09/02/22 1,000 mcg tablet ferrous sulfate 325 mg (65 mg 325 mg PO DAILY 09/02/22 09/02/22 iron) tablet furosemide 20 mg tablet 10 mg PO DAILY 09/02/22 09/02/22 glipizide 5 mg tablet 5 mg PO DAILY 09/02/22 09/02/22 pravastatin 40 mg tablet 40 mg PO DAILY 09/02/22 09/02/22 sitagliptin phosphate 100 mg 100 mg PO DAILY 09/02/22 09/02/22 tablet (Januvia) tramadol 50 mg tablet 50 mg PO Q6H PRN Pain (Scale Score 09/02/22 09/02/22 4-6) triamcinolone acetonide 0.5 % 1 applic topical BID tawny legs 09/02/22 09/02/22 topical cream Allergies Allergy/AdvReac Type Severity Reaction Status Date / Time adhesive tape Allergy Unknown Verified 01/24/23 14:57 Review of Systems Review of Systems: All systems reviewed & are unremarkable except as noted in HPI and below PMFSH Past Medical History Medical History Altered mental status Cellulitis of right leg Hypertension UTI (urinary tract infection) Social History Social History Smoking status: Never smoker Alcohol intake: never Substance use: never Substance use type: does not use Spiritual care concerns: No Exam Const: General: healthy appearing Nutritional Appearance: well nourished Orientation/consciousness: patient oriented x3 Limitations: no limitations Eyes: Conjunctivae: conjunctivae normal Chest: Chest palpation & inspection: normal inspection of the chest Resp: Effort & Inspection: normal respiratory effort Auscultation: clear to auscultation bilaterally Cardio: Rate: regular rate Rhythm: regular rhythm : General: Yes bladder normal to palpation Urinary Catheter: Urinary Catheter: patent and draining Back/Spine/Pelvis: Back: no CVA tenderness Neuro: General: patient oriented x3 and moves all extremities Course Course Emergency Course: Patient has urinary tract infection on urinalysis and a dose of Macrobid given to the patient prior to discharge. Vital Signs Vital signs: Vital Signs Temperature 36.9 C 02/13/24 15:34 Pulse Rate 85 02/13/24 15:34 Respiratory Rate 20 02/13/24 15:34 Blood Pressure 160/79 H 02/13/24 15:34 Pulse Oximetry 99 02/13/24 15:34 Oxygen Delivery Room Air 02/13/24 15:34 Temperature 36.9 C 02/13/24 15:34 Pulse Rate 85 02/13/24 15:34 Respiratory Rate 20 02/13/24 15:34 Blood Pressure 160/79 H 02/13/24 15:34 Pulse Oximetry 99 02/13/24 15:34 Oxygen Delivery Room Air 02/13/24 15:34 MDM - Female Genitourinary Lab Data 02/13/24 16:07 02/13/24 16:06 Labs: Lab Results 02/13/24 02/13/24 02/13/24 Range/Units 16:06 16:07 16:12 WBC 6.8 (4.8-10.8) K/mm3 RBC 3.66 L (4.20-5.40) M/mm3 Hgb 10.5 L (11.7-13.8) g/dL Hct 33.8 L (35.0-42.0) % MCV 92.3 (78.0-102.0) fL MCH 28.7 (27.0-31.0) pg MCHC 31.1 L (32-36) g/dL RDW 13.2 (11.6-14.4) % Plt Count 212 (150-420) K/mm3 MPV 9.5 (9.2-11.8) fl Immature Gran % (Auto) 0.4 H (0.0-0.0) % Neut % (Auto) 65.9 (50.0-70.0) % Lymph % (Auto) 21.9 (18.0-42.0) % [place] % (Auto) 8.3 (2.0-11.0) % Eos % (Auto) 2.8 (1.0-6.0) % Baso % (Auto) 0.7 (0.
[2024-02-13] MEDS: NITROFURANTOIN MONOHYD MACROCR 100 MG CAP PO (16:47)
--- NOTE | 2024-02-15 17:07 | PC.NURSE ---
02/15/24 PTS URINE CULTURE CAME BACK POSITIVE FOR E COLI PT ON MACROBID 100MG PO BID PER DR COPE SHE IS COVERED NO FURTHER ORDERS RECEIVED
== END 2024-02-13 17:00 | disposition home or self-care (01) ==
PROVIDERS: Emergency Provider Emergency Medicine
DX: N39.0 Urinary tract infection, site not specified (principal); I10 Essential (primary) hypertension; Z79.899 Other long term (current) drug therapy
CPT/HCPCS: 36415; 80053; 81001; 85025; 87077; 87086; 87088; 87186; 99283; A9270

== ENCOUNTER 2024-02-24 13:11 | Outpatient (CLI) | payer MEDICARE, BC, SELFPAY ==
--- NOTE | 2024-02-24 13:19 | ECG_ITS ---
Measurements Intervals [place] Rate: 84 P: 58 AL: 157 QRS: 6 QRSD: 90 T: 33 QT: 397 QTc: 472 Interpretive Statements SINUS RHYTHM BORDERLINE R WAVE PROGRESSION, ANTERIOR LEADS BASELINE WANDER- III, V6 BORDERLINE ECG COMPARED TO ECG 09/01/2022 01:12:50 SINUS RHYTHM NOW PRESENT Electronically Signed On 02-24-2024 13:47:34 CDT by Jerson Chauhan D.O.
== END 2024-02-24 13:12 | disposition home or self-care (01) ==
LOC: CHSCARD 13:15
DX: R07.89 Other chest pain (principal); R09.1 Pleurisy
CPT/HCPCS: 93005

== ENCOUNTER 2024-03-06 14:02 | Outpatient (CLI) | payer MEDICARE, BC, SELFPAY ==
--- NOTE | ~2024-03-06 | US_ITS ---
EXAMINATION: US soft tissue chest DATE: 03/06/2024 15:06 INDICATION: Opacity noted on prior chest radiographs suspicious for left pleural effusion. TECHNIQUE: Multiple grayscale and Doppler ultrasound images of the left lower chest were obtained. COMPARISON: None FINDINGS/IMPRESSION: Small left pleural effusion overlying the shadowing left lung. The more superficial left chest wall a ppears unremarkable. Reviewed, dictated and finalized at location A.
== END 2024-03-06 14:03 | disposition home or self-care (01) ==
LOC: CHSIMG 14:05
DX: R93.89 Abnormal findings on diagnostic imaging of other specified body structures (principal); J90 Pleural effusion, not elsewhere classified
CPT/HCPCS: 76604

== ENCOUNTER 2024-11-17 00:36 | Emergency (ER) | payer MEDICARE, BC, SELFPAY ==
[2024-11-17] VITALS (58 sets, daily range): BP systolic 100–159; BP diastolic 59–104; PULSE 83–130; RESP 17–32; TEMP 37.1–37.7; O2SAT 91–100
--- NOTE | ~2024-11-17 | XR_ITS ---
Portable chest x-ray Comparison: 09/01/2022 Clinical History: Shortness of breath Findings: There is minimal bibasilar haziness. Cardiomediastinal silhouette is stable. Bones and so ft tissues are unremarkable. Impression: Probable minimal bibasilar pulmonary edema. Reviewed, dictated and finalized at location . R [employer] Impression: Probable minimal bibasilar pulmonary edema.
--- NOTE | 2024-11-17 00:41 | ECG_ITS ---
Test Date: 2024-11-17 01:35:39 Measurements Intervals [place] Rate: 121 P: -17 MA: 234 QRS: -12 QRSD: 90 T: 29 QT: 332 QTc: 473 Interpretive Statements SINUS TACHYCARDIA WITH FIRST DEGREE AV BLOCK No previous ECG available for comparison Electronically Signed On 11-17-2024 15:59:58 MECHANICAL ENGINEERING DRAFTSPERSON by Eliceo Smith M.D.
--- NOTE | 2024-11-17 00:45 | ED_ITS ---
HPI - SOB/Dyspnea General Chief Complaint: Shortness of Breath/Dyspnea <William Norris MD - Last Filed: 11/17/24 03:10> Stated Complaint: shortness of breath <William Norris MD - Last Filed: 11/17/24 03:10> Time Seen by Provider: 11/17/24 00:40 <William Norris MD - Last Filed: 11/17/24 03:10> Source: patient <William Norris MD - Last Filed: 11/17/24 03:10> Mode of arrival: ambulatory <William Norris MD - Last Filed: 11/17/24 03:10> Limitations: no limitations <William Norris MD - Last Filed: 11/17/24 03:10> History of Present Illness HPI Narrative: patient is an 84-year-old female with significant past medical history presents today for shortness of breast. Patient is at home started having shortness of breath and called 911. She has a history of heart failure and she thinks asthma. She does takes Lasix 20 mg a day. She received a DuoNeb treatment on the way here and this did help with her breathing she says. She is still wheezing on a [place] and is tachypneic and tachycardic. She was seen today in urgent care and diagnosed with UTI given antibiotics for. <William Norris MD - Last Filed: 11/17/24 03:10> MD elicited complaint: shortness of breath and cough <William Norris MD - Last Filed: 11/17/24 03:10> Pertinent past history: asthma and congestive heart failure <William Norris MD - Last Filed: 11/17/24 03:10> Onset (ago): hour(s) <William Norris MD - Last Filed: 11/17/24 03:10> Context: recent illness <William Norris MD - Last Filed: 11/17/24 03:10> Timing: constant <William Norris MD - Last Filed: 11/17/24 03:10> Severity: moderate <William Norris MD - Last Filed: 11/17/24 03:10> Exacerbating factors: lying flat and exertion <William Norris MD - Last Filed: 11/17/24 03:10> Relieving factors: oxygen <William Norris MD - Last Filed: 11/17/24 03:10> Known history of: asthma, congestive heart failure and diabetes <William Norris MD - Last Filed: 11/17/24 03:10> Associated symptoms: wheezing, orthopnea and chest congestion <William Norris MD - Last Filed: 11/17/24 03:10> Treatment prior to arrival: oxygen and bronchodilator <William Norris MD - Last Filed: 11/17/24 03:10> Related Data Home oxygen amount: none <William Norris MD - Last Filed: 11/17/24 03:10> Home Medications: Home Medications ?Medication ?Instructions ?Recorded ?Confirmed ?Last Taken ?Type furosemide 20 mg tablet 10 mg PO DAILY 09/02/22 11/17/24 Unknown History tramadol 50 mg tablet 50 mg PO Q6H PRN Pain (Scale Score 09/02/22 11/17/24 Unknown History 4-6) atorvastatin 80 mg tablet 80 mg PO QPM 11/17/24 11/17/24 Unknown History ciprofloxacin HCl 250 mg tablet 250 mg PO Q12H 11/17/24 11/17/24 Unknown History clopidogrel 75 mg tablet 75 mg PO DAILY 11/17/24 11/17/24 Unknown History insulin degludec 100 unit/mL (3 15 unit subcut QPM 11/17/24 11/17/24 Unknown History mL) subcutaneous pen isosorbide mononitrate 30 mg 30 mg PO DAILY 11/17/24 11/17/24 Unknown History tablet,extended release 24 hr losartan 25 mg tablet 25 mg PO DAILY 11/17/24 11/17/24 Unknown History sitagliptin phosphate 100 mg 100 mg PO DAILY 11/17/24 11/17/24 Unknown History tablet (Januvia) <William Norris MD - Last Filed: 11/17/24 03:10> Allergies/Adverse Reactions: Allergies Allergy/AdvReac Type Severity Reaction Status Date / Time adhesive tape Allergy Unknown Verified 11/17/24 07:25 <William Norris MD - Last Filed: 11/17/24 03:10> Review of Systems 2 Review of Systems: ROS unobtainable: Yes unobtainable due to endotracheal tube <William Norris MD - Last Filed: 11/17/24 03:10> Constitutional: Constitutional: Reports as per HPI <William Norris MD - Last Filed: 11/17/24 03:10> Eyes: Eyes: Reports no additional eye complaints <William Norris MD - Last Filed: 11/17/24 03:10> ENT: Reports system reviewed and no additional complaints, except as documented <William Norris MD - Last Filed: 11/17/24 03:10> Cardiovascular: Cardiovascular: Reports no additional cardiovascular complaints <William Norris MD - Last Filed: 11/17/24 03:10> Respiratory: Respiratory: Reports no additional respiratory complaints < William Norris MD - Last Filed: 11/17/24 03:10> Gastrointestinal: Gastrointestinal: Reports no additional gastrointestinal complaints <William Norris MD - Last Filed: 11/17/24 03:10> Genitourinary: Genitourinary: Reports no additional female genitourinary complaints <William Norris MD - Last Filed: 11/17/24 03:10> Musculoskeletal: Musculoskeletal: Reports no additional musculoskeletal complaints <William Norris MD - Last Filed: 11/17/24 03:10> Integumentary/Breasts: Skin/Breast: Reports system reviewed and no additional complaints, except as docu <William Norris MD - Last Filed: 11/17/24 03:10> Neurologic: Reports system reviewed and no additional complaints, except as documented <William Norris MD - Last Filed: 11/17/24 03:10> Psychiatric: Psychiatric: Reports no additional psychiatric complaints < William Norris MD - Last Filed: 11/17/24 03:10> Endocrine: Endocrine: Reports no additional endocrine complaints <William Norris MD - Last Filed: 11/17/24 03:10> Hematologic/Lymphatic: Hematologic/Lymphatic: Reports no additional hematologic/lymphatic complaints <William Norris MD - Last Filed: 11/17/24 03:10> Allergic/Immunologic: Allergic/Immunologic: Reports no additional allergic/immunologic complaints <William Norris MD - Last Filed: 11/17/24 03:10> PMFSH Past Medical History Medical History: Medical History Altered mental status UTI (urinary tract infection) Cellulitis of right leg Hypertension <William Nroris MD - Last Filed: 11/17/24 03:10> Social History Social History: Social History Smoking status: Never smoker Alcohol intake: never Substance use: never Substance use type: does not use Spiritual care concerns: No <William Norris MD - Last Filed: 11/17/24 03:10> Exam 2 Const: General: healthy appearing <William Norris MD - Last Filed: 11/17/24 03:10> Nutritional Appearance: well nourished <William Norris MD - Last Filed: 11/17/24 03:10> Orientation/consciousness: patient oriented x3 <William Norris MD - Last Filed: 11/17/24 03:10> HENMT: Head: normal to inspection <William Norris MD - Last Filed: 11/17/24 03:10> Ears: external ears normal <William Norris MD - Last Filed: 11/17/24 03:10> Face/Nose/Sinus: Normal external nose present <William Norris MD - Last Filed: 11/17/24 03:10> Face and sinus: normal facial exam <William Norris MD - Last Filed: 11/17/24 03:10> Mouth: Yes Normal oral and palatal mucosa present <William Norris MD - Last Filed: 11/17/24 03:10> Teeth and gingiva: dentition normal <William Norris MD - Last Filed: 11/17/24 03:10> Throat: posterior oropharynx normal <William Norris MD - Last Filed: 11/17/24 03:10> Eyes: Conjunctivae: conjunctivae normal <William Norris MD - Last Filed: 11/17/24 03:10> Pupils: Equal, round and reactive pupils present <William Norris MD - Last Filed: 11/17/24 03:10> EOM: EOMs intact bilaterally <William Norris MD - Last Filed: 11/17/24 03:10> Direct Ophthalmoscopy: no photophobia <William Norris MD - Last Filed: 11/17/24 03:10> Neck: Neck: normal visual inspection <William Norris MD - Last Filed: 11/17/24 03:10> Chest: Chest palpation & inspection: normal inspection of the chest < William Norris MD - Last Filed: 11/17/24 03:10> Resp: Effort & Inspection: labored, retractions and tachypneic <William Norris MD - Last Filed: 11/17/24 03:10> Auscultation: crackles and wheezes <William Norris MD - Last Filed: 11/17/24 03:10> Cardio: Rate: tachycardic <William Norris MD - Last Filed: 11/17/24 03:10> Rhythm: abnormal rhythm <William Norris MD - Last Filed: 11/17/24 03:10> Heart sounds: Murmur heart sound present <William Norris MD - Last Filed: 11/17/24 03:10> GI: GI Palp: Yes Soft to palpation <William Norris MD - Last Filed: 11/17/24 03:10> Auscultation: normal bowel sounds <William Norris MD - Last Filed: 11/17/24 03:10> : General: Yes bladder normal to palpation <William Norris MD - Last Filed: 11/17/24 03:10> Back/Spine/Pelvis: Back: no CVA tenderness <William Norris MD - Last Filed: 11/17/24 03:10> Skin: General skin exam: normal color <William Norris MD - Last Filed: 11/17/24 03:10> Rashes: no rashes <William Norris MD - Last Filed: 11/17/24 03:10> Wounds: no wounds <William Norris MD - Last Filed: 11/17/24 03:10> Neuro: General: patient oriented x3 <William Norris MD - Last Filed: 11/17/24 03:10> Cranial nerves: Yes Nystagmus not present <William Norris MD - Last Filed: 11/17/24 03:10> Speech: normal speech <William Norris MD - Last Filed: 11/17/24 03:10> Gait exam (Neuro): Normal gait present <William Norris MD - Last Filed: 11/17/24 03:10> Extrem: General: normal to inspection <William Norris MD - Last Filed: 11/17/24 03:10> Psych: Mental Status: mental status grossly normal <William Norris MD - Last Filed: 11/17/24 03:10> Affect: normal affect <William Norris MD - Last Filed: 11/17/24 03:10> Attitude: cooperative <William Norris MD - Last Filed: 11/17/24 03:10> Course Reevaluation(s) Reevaluation #1: Patient's troponin was 224 consistent NSTEMI start her on heparin drip. Talked to her cardiology group they agree start a heparin drip and transfer her to hold the more ill with a preceding her and treat her from there. Spoke to the hospitalist Freda the hospitalist and they will accept the patient. They will call him that <William Norris MD - Last Filed: 11/17/24 03:10> Date: 11/17/24 <William Norris MD - Last Filed: 11/17/24 03:10> Time: 03:10 <William Norris MD - Last Filed: 11/17/24 03:10> Vital Signs Vital signs: Vital Signs Pulse Rate 130 H 11/17/24 00:55 Respiratory Rate 30 H 11/17/24 00:55 Pulse Oximetry 97 11/17/24 00:55 Temperature 98.8 F 11/17/24 04:11 Pulse Rate 91 11/17/24 09:01 Respiratory Rate 20 11/17/24 09:01 Blood Pressure 133/104 H 11/17/24 09:01 Pulse Oximetry 98 11/17/24 09:01 Oxygen Delivery Nasal Cannula 11/17/24 04:11 Oxygen Flow Rate 2 11/17/24 04:11 <William Norris MD - Last Filed: 11/17/24 03:10> Vital Signs Pulse Rate 130 H 11/17/24 00:55 Respiratory Rate 30 H 11/17/24 00:55 Pulse Oximetry 97 11/17/24 00:55 Temperature 98.8 F 11/17/24 04:11 Pulse Rate 91 11/17/24 09:01 Respiratory Rate 20 11/17/24 09:01 Blood Pressure 133/104 H 11/17/24 09:01 Pulse Oximetry 98 11/17/24 09:01 Oxygen Delivery Nasal Cannula 11/17/24 04:11 Oxygen Flow Rate 2 11/17/24 04:11 <Estella Lal III, DO - Last Filed: 11/17/24 09:19> MDM - SOB/Dyspnea MDM Narrative Medical decision making narrative: Patient has very systolic diastolic murmurs and in all quadrants and has a history of an RI and bad bowels that can be heard on auscultation. He also has bad wheezing in all lung elizalde. She was given DuoNebs the way here. Will give her another round of DuoNebs now. Will also give her full 40 mg Lasix IV. chest x-ray is also did a chest x-ray chest x-ray did show some pulmonary edema. also do full lab work her and troponins as well. Also check a BNP as well. < William Norris MD - Last Filed: 11/17/24 03:10> Patient has very systolic diastolic murmurs and in all quadrants and has a history of an RI and bad bowels that can be heard on auscultation. He also has bad wheezing in all lung elizalde. She was given DuoNebs the way here. Will give her another round of DuoNebs now. Will also give her full 40 mg Lasix IV. chest x-ray is also did a chest x-ray chest x-ray did show some pulmonary edema. also do full lab work her and troponins as well. Also check a BNP as well. Assumed from Dr Norris at 0700 Pt NSTEMI with mild CHF. Pt pain free on heparin gtt. rechecked PTT, blood sugar elevated but pt does not want ot eat at this time so will hold on treating. Pt got bed at [facility] and will transfer in stable condition. Lal <Estella Lal III, DO - Last Filed: 11/17/24 09:19> Differential Diagnosis Differential diagnosis: Likely congestive heart failure and asthma with exacerbation <William Norris MD - Last Filed: 11/17/24 03:10> Medical Records Attestation: I reviewed the patient's medical records. <William Norris MD - Last Filed: 11/17/24 03:10> Lab Data Attestation: I reviewed the patient's lab results. <William Norris MD - Last Filed: 11/17/24 03:10> Result diagrams: 11/17/24 01:17 11/17/24 01:17 <William Norris MD - Last Filed: 11/17/24 03:10> Labs: Lab Results 11/17/24 11/17/24 11/17/24 Range/Units 01:17 01:51 07:30 WBC 11.2 H (4.8-10.8) K/mm3 RBC 3.79 L (4.20-5.40) M/mm3 Hgb 10.9 L (11.7-13.8) g/dL Hct 34.0 L (35.0-42.0) % MCV 89.7 (78.0-102.0) fL MCH 28.8 (27.0-31.0) pg MCHC 32.1 (32-36) g/dL RDW 13.1 (11.6-14.4) % Plt Count 194 (150-420) K/mm3 MPV 10.3 (9.2-11.8) fl Immature Gran % (Auto) 0.4 H (0.0-0.0) % Neut % (Auto) 81.3 H (50.0-70.0) % Lymph % (Auto) 11.1 L (18.0-42.0) % [place] % (Auto) 6.5 (2.0-11.0) % Eos % (Auto) 0.3 L (1.0-6.0) % Baso % (Auto) 0.4 (0.0-1.0) % Lymph # (Auto) 1.24 (1.10-4.50) K/mm3 [place] # (Auto) 0.73 (0.10-0.90) K/mm3 Eos # (Auto) 0.03 (0.02-0.50) K/mm3 Baso # (Auto) 0.04 (0.00-0.10) K/mm3 Abs Immat Gran (auto) 0.05 H (0.00-0.00) K/mm3 Absolute Neuts (auto) 9.12 H (1.70-7.20) K/mm3 Absolute Nucleated RBC 0.00 (0.00-0.00) K/mm3 Nucleated RBC % 0.0 (0-0.0) % D-Dimer 0.97 H* (0.19-0.50) mg/L Sodium 134 L (136-145) mmol/L Potassium 4.6 (3.5-5.1) mmol/L Chloride 102 (98-108) mmol/L Carbon Dioxide 22 (21-32) mmol/L Anion Gap 10 (4-12) mmol/L BUN 35 H (7-18) mg/dL Creatinine 1.70 H (0.55-1.02) mg/dL Estim Creat Clear Calc 27 ml/min Estimated GFR 29 L (59 - ) Glucose 236 H (70-99) mg/dL POC Capillary Glucose 393 H (65-105) mg/dl Calculated Osmolality 294 (285-295) mOsm/kg Calcium 8.8 (8.5-10.1) mg/dL Magnesium 1.4 L (1.8-2.4) mg/dL Total Bilirubin 0.7 (0.00-1.00) mg/dL AST 19 (15-37) U/L ALT 15 (14-59) U/L Alkaline Phosphatase 91 (46-116) U/L Troponin I 224.3 H* (0.00-60.4) ng/L NT-Pro-B Natriuret Pep 3730 H (0-450) pg/mL Total Protein 7.0 (6.4-8.2) g/dL Albumin 2.9 L (3.4-5.0) g/dL Influenza A (RT-PCR) Negative (Negative) Influenza B (RT-PCR) Negative (Negative) RSV (RT-PCR) Negative (Negative) SARS-CoV-2 RNA (RT-PCR) Negative (Negative) <William Norris MD - Last Filed: 11/17/24 03:10> Lab Results 11/17/24 11/17/24 11/17/24 Range/Units 01:17 01:51 07:30 WBC 11.2 H (4.8-10.8) K/mm3 RBC 3.79 L (4.20-5.40) M/mm3 Hgb 10.9 L (11.7-13.8) g/dL Hct 34.0 L (35.0-42.0) % MCV 89.7 (78.0-102.0) fL MCH 28.8 (27.0-31.0) pg MCHC 32.1 (32-36) g/dL RDW 13.1 (11.6-14.4) % Plt Count 194 (150-420) K/mm3 MPV 10.3 (9.2-11.8) fl Immature Gran % (Auto) 0.4 H (0.0-0.0) % Neut % (Auto) 81.3 H (50.0-70.0) % Lymph % (Auto) 11.1 L (18.0-42.0) % [place] % (Auto) 6.5 (2.0-11.0) % Eos % (Auto) 0.3 L (1.0-6.0) % Baso % (Auto) 0.4 (0.0-1.0) % Lymph # (Auto) 1.24 (1.10-4.50) K/mm3 [place] # (Auto) 0.73 (0.10-0.90) K/mm3 Eos # (Auto) 0.03 (0.02-0.50) K/mm3 Baso # (Auto) 0.04 (0.00-0.10) K/mm3 Abs Immat Gran (auto) 0.05 H (0.00-0.00) K/mm3 Absolute Neuts (auto) 9.12 H (1.70-7.20) K/mm3 Absolute Nucleated RBC 0.00 (0.00-0.00) K/mm3 Nucleated RBC % 0.0 (0-0.0) % D-Dimer 0.97 H* (0.19-0.50) mg/L Sodium 134 L (136-145) mmol/L Potassium 4.6 (3.5-5.1) mmol/L Chloride 102 (98-108) mmol/L Carbon Dioxide 22 (21-32) mmol/L Anion Gap 10 (4-12) mmol/L BUN 35 H (7-18) mg/dL Creatinine 1.70 H (0.55-1.02) mg/dL Estim Creat Clear Calc 27 ml/min Estimated GFR 29 L (59 - ) Glucose 236 H (70-99) mg/dL POC Capillary Glucose 393 H (65-105) mg/dl Calculated Osmolality 294 (285-295) mOsm/kg Calcium 8.8 (8.5-10.1) mg/dL Magnesium 1.4 L (1.8-2.4) mg/dL Total Bilirubin 0.7 (0.00-1.00) mg/dL AST 19 (15-37) U/L ALT 15 (14-59) U/L Alkaline Phosphatase 91 (46-116) U/L Troponin I 224.3 H* (0.00-60.4) ng/L NT-Pro-B Natriuret Pep 3730 H (0-450) pg/mL Total Protein 7.0 (6.4-8.2) g/dL Albumin 2.9 L (3.4-5.0) g/dL Influenza A (RT-PCR) Negative (Negative) Influenza B (RT-PCR) Negative (Negative) RSV (RT-PCR) Negative (Negative) SARS-CoV-2 RNA (RT-PCR) Negative (Negative) <Estella Lal III, DO - Last Filed: 11/17/24 09:19> Discharge Plan Discharge Clinical Impression: Acute non-ST elevation myocardial infarction (NSTEMI), CHF (congestive heart failure) <William Norris MD - Last Filed: 11/17/24 03:10> Patient Disposition: Acute Care Hospital <William Norris MD - Last Filed: 11/17/24 03:10> Condition: Stable <William Norris MD - Last Filed: 11/17/24 03:10> Patient Language: Romansh <William Norris MD - Last Filed: 11/17/24 03:10> Prescriptions: No Action atorvastatin 80 mg tablet 80 mg PO QPM losartan 25 mg tablet 25 mg PO DAILY insulin degludec 100 unit/mL (3 mL) insulin pen 15 unit SUBCUT QPM ciprofloxacin HCl 250 mg tablet 250 mg PO Q12H isosorbide mononitrate 30 mg tablet extended release 24 hr 30 mg PO DAILY clopidogrel 75 mg tablet 75 mg PO DAILY Januvia 100 mg tablet 100 mg PO DAILY tramadol 50 mg Tablet 50 mg PO Q6H PRN (Reason: Pain (Scale Score 4-6)) furosemide 20 mg Tablet 10 mg PO DAILY Eliquis 5 mg Tablet 2.5 mg PO BID Qty: 30 0RF <William Norris MD - Last Filed: 11/17/24 03:10> Follow-up/Referrals: UNKNOWN,DOCTOR [Primary Care Provider] - <William Norris MD - Last Filed: 11/17/24 03:10>
[2024-11-17] MEDS: IPRATROPIUM 0.5 MG/ALBUTEROL SULFATE 2.5 MG AMPUL.NEB 3 ML INHALATION ×2 (01:21→01:42)
[2024-11-17] MEDS: methylPREDNISolone SOD SUCC 125 MG VIAL IV PUSH (01:22)
[2024-11-17] MEDS: FUROSEMIDE INJ 40 MG/4 ML VIAL IV PUSH (01:23)
[2024-11-17] MEDS: METOPROLOL TARTRATE INJ 5 MG/5 ML VIAL IV PUSH (01:25)
[2024-11-17 01:36] LABS: Basophils Absolute Auto 0.04 K/mm3 (0.00-0.10); Basophils Percent Auto 0.4 % (0.0-1.0); Eosinophils Absolute Auto 0.03 K/mm3 (0.02-0.50); Eosinophils Percent Auto 0.3 % (1.0-6.0); Hemoglobin 10.9 g/dL (11.7-13.8); Immature Granulocyte Absolute 0.05 K/mm3 (0.00-0.00); Immature Granulocyte Percent A 0.4 % (0.0-0.0); Lymphocytes Absolute Auto 1.24 K/mm3 (1.10-4.50); Lymphocytes Percent Auto 11.1 % (18.0-42.0); Mean Corpuscular HGB Conc 32.1 g/dL (32-36); Mean Corpuscular Hemoglobin 28.8 pg (27.0-31.0); Mean Corpuscular Volume 89.7 fL (78.0-102.0); Mean Platelet Volume 10.3 fl (9.2-11.8); Monocytes Absolute Auto 0.73 K/mm3 (0.10-0.90); Monocytes Percent Auto 6.5 % (2.0-11.0); Neutrophils Absolute Auto 9.12 K/mm3 (1.70-7.20); Neutrophils Percent Auto 81.3 % (50.0-70.0); Platelet Count Result 194 K/mm3 (150-420); Red Blood Count 3.79 M/mm3 (4.20-5.40); Red Cell Distribution Width 13.1 % (11.6-14.4); White Blood Count 11.2 K/mm3 (4.8-10.8)
[2024-11-17] MEDS: OXYMETAZOLINE HCL 0.05% NAS 15 ML BTL (*BKC) 2 SPRAY NASAL (01:41)
[2024-11-17 01:57] LABS: D Dimer 0.97 mg/L (0.19-0.50)
[2024-11-17 02:08] LABS: Alanine Aminotransferase 15 U/L (14-59); Albumin Level 2.9 g/dL (3.4-5.0); Alkaline Phosphatase 91 U/L (46-116); Anion Gap 10 mmol/L (4-12); Aspartate Amino Transferase 19 U/L (15-37); Bilirubin,Total 0.7 mg/dL (0.00-1.00); Blood Urea Nitrogen 35 mg/dL (7-18); Calcium 8.8 mg/dL (8.5-10.1); Carbon Dioxide 22 mmol/L (21-32); Chloride 102 mmol/L (98-108); Estimated CRCL calculation 27 ml/min; Estimated Glomerular Filt Rate 29; Glucose 236 mg/dL (70-99); Magnesium 1.4 mg/dL (1.8-2.4); NT Pro B Type Natriuretic Pept 3730 pg/mL (0-450); Osmolality Calculated 294 mOsm/kg (285-295); Potassium 4.6 mmol/L (3.5-5.1); Sodium 134 mmol/L (136-145)
[2024-11-17 02:10] LABS: Troponin I 224.3 ng/L (0.00-60.4)
[2024-11-17 02:18] LABS: SARS-CoV-2 RNA PCR Negative (Negative)
--- NOTE | 2024-11-17 02:22 | PC.NURSE ---
Dr Norris in to talk w/ pt and family about lab results and POC. Monitor shows ST w/ rate of 126, pt resting more comfortably, SPO2 at 94% on RA at this time.
[2024-11-17 02:29] LABS: Influenza A QL RT-PCR Negative (Negative); Influenza B QL RT-PCR Negative (Negative); RSV RNA, RT-PCR Negative (Negative)
[2024-11-17] MEDS: ASPIRIN 81 MG CHEWABLE TABLET 324 MG PO (02:30)
--- NOTE | 2024-11-17 02:47 | PC.NURSE ---
Pt c/o sharp pain in her back when taking deep breath. ERP informed, orders received.
[2024-11-17] MEDS: HEPARIN SODIUM 5,000 UNITS/ML VIAL 4000 UNITS IV PUSH (03:02)
[2024-11-17] MEDS: HEPARIN SOD/D5W 100 UNITS/ML 25,000 UNITS/250 ML BAG 9 UNITS IV CONT (03:05)
--- NOTE | 2024-11-17 03:24 | PC.NURSE ---
Pt resting w/ heparin gtt infusing per protocol. VSS and continuing to monitor. Pt and family updated that pt has acceptance at [facility] but is on wait list due to no beds at this time. Will continue to monitor until bed opens. Pt states her Dr is there and would prefer to go to [facility].
--- NOTE | 2024-11-17 03:45 | PC.NURSE ---
Pt moved to more comfortable bed and repositioned for comfort. Call bowen at side, continuing to monitor pt hasnt urinated since being in ER. Dr Norris gave order to place catheter.
--- NOTE | 2024-11-17 04:20 | PC.NURSE ---
Pt family left at this time, lights dimmed, call bowen at side. Pt resting and monitor shows STach w/ rate 104. Pt given sips of ice water and encouraged to call if needed.
--- NOTE | 2024-11-17 07:09 | PC.NURSE ---
Report given to Rodolfo Fraire Pts son called and updated on pt status.
[2024-11-17 07:32] LABS: Glucose Point of Care 393 mg/dl (65-105)
--- NOTE | 2024-11-17 08:06 | PC.NURSE ---
Patient offered Breakfast tray. Patient states she does not eat breakfast and wont eat until lunch. Per erp do not give insulin at this time. Will continue to monitor blood sugars.
[2024-11-17 09:55] LABS: Partial Thromboplastin Time 65.9 Sec (23.9-30.70)
--- NOTE | 2024-11-17 10:51 | PC.NURSE ---
RN called Jelena ROMAN at [facility] to give updated PTT result
--- NOTE | 2024-11-18 12:12 | PC.NURSE ---
PRELIMINARY BLOOD CULTURE RESULTS X2: NO GROWTH TO DATE
== END 2024-11-17 10:11 | disposition short-term general hospital (02) ==
PROVIDERS: Family Medicine; Emergency Provider Emergency Medicine
DX: I21.4 Non-ST elevation (NSTEMI) myocardial infarction (principal); I11.0 Hypertensive heart disease with heart failure; I50.9 Heart failure, unspecified; Z79.4 Long term (current) use of insulin; Z79.899 Other long term (current) drug therapy; Z20.822 Contact with and (suspected) exposure to COVID-19
CPT/HCPCS: 36415; 71045; 80053; 82948; 83735; 83880; 84484; 85025; 85380; 85730; 87040; 87637; 93005; 94640; 96365; 96366; 96375; 99285; A9270; J1644; J1940; J2919

== ENCOUNTER 2025-05-03 12:40 | Outpatient (NON) | payer MEDICARE, SELFPAY ==
--- OUTSIDE RECORDS SUMMARY | 2025-05-03 12:49 | XMS_ITS | Referral Summary ---
Author Organization [facility] Medical Office Building A Address [address] [place] [phone] Care Team Providers Care Production Administrative Assistant Name Role Phone Gopi Severino MD Primary Care Provider [phone] Gerber Dixon MD Unavailable + [phone] Encounters Date Type Department Care Team Description 04/23/2025 Telephone [facility] Medical Group Primary Care at [address] [place] [phone] Gopi Severino MD Medical Question/Miscellane ous 04/16/2025 3:30 PM CDT Ancillary Procedure [facility] [address] [place] [phone] CHB (complete heart block) (HCC); Pacemaker 03/18/2025 Telephone [facility] Medical [facility] Primary Care at [address] [place] [phone] Gopi Severino MD Additional Services Or Orders 03/09/2025 2:30 PM CDT Office Visit [facility] at [address] [place] [address] Valente Jacob MD S/P TAVR (transcatheter aortic valve replacement) (Primary Dx) 03/02/2025 11:15 AM CDT Office Visit [facility] Medical Group Primary Care at [address] [place] [address] Gopi Severino MD Type 2 diabetes mellitus with stage 3b chronic kidney disease, without long-term current use of insulin (HCC) (Primary Dx); Class 1 obesity due to excess calories with serious comorbidity and body mass index (BMI) of 34.0 to 34.9 in adult; Hypertension associated with stage 3b chronic kidney disease due to type 2 diabetes mellitus (HCC); Hyperlipidemia associated with type 2 diabetes mellitus (HCC); Mixed stress and urge urinary incontinence 02/16/2025 Telephone [facility] Medical Group Primary Care at [address] [place] [address] Gopi Severino MD Medical Question/Miscellane ous 02/10/2025 10:16 AM CDT - 02/10/2025 11:59 PM CDT Hospital Encounter [facility] Cardiology [address] [place] [phone] S/P TAVR (transcatheter aortic valve replacement) Discharge Disposition: Discharge to home or self care 02/04/2025 12:00 PM NEEDLE LOOM OPERATOR HELPER Ancillary Procedure [facility] at [address] [place] [address] Pacemaker reprogramming/check (Primary Dx); CHB (complete heart block) (HCC); Pacemaker 02/04/2025 12:00 PM NEEDLE LOOM OPERATOR HELPER Office Visit [facility] at [address] [place] [address] Kristopher Cortes MD AV block, 2nd degree (Primary Dx) from Last 3 Months Allergies Active Allergy Reactions Criticality Noted Date Comments Adhesive Tape-Silicones Rash Medium 08/09/2022 Medications blood-glucose meter kitIndications: Type 2 diabetes mellitus with hyperglycemia, without long-term current use of insulin (HCC) Test daily and as needed, max 2 times daily. Dx: dm2 1 kit 09/12/20 Active lancets 32 gauge miscIndications :Type 2 diabetes mellitus with hyperglycemia, without long-term current use of insulin (HCC) Test daily and as needed, up to twice daily; dx DM2 100 each 3 10/12/20 22 Active isosorbide mononitrate ER (IMDUR) 30 mg 24 hr tablet Take 1 tablet (30 mg total) by mouth daily 90 tablet 3 02/25/20 24 Active empagliflozin (JARDIANCE) 10 mg tabletIndicatio ns:Chronic Kidney Disease,Heart Failure,heart failure associated with type 2 diabetes mellitus,type 2 diabetes mellitus Take 1 tablet (10 mg total) by mouth daily 90 tablet 2 12/10/19 25 Active insulin degludec (TRESIBA) 100 unit/mL (3 mL) pen for injection INJECT 0.15 ML (15 UNITS TOTAL) UNDER THE SKIN NIGHTLY 3 mL 1 12/14/19 25 025 Active famotidine (PEPCID) 10 mg tablet Take 1 tablet (10 mg total) by mouth nightly Active apixaban (ELIQUIS) 2.5 mg tabletIndicatio ns:Prevention of Recurrent Venous Thrombosis in Malignancy Take 1 tablet (2.5 mg total) by mouth 2 (two) times a day 180 tablet 1 01/20/20 25 025 Active metoprolol XL (TOPROL-XL) 25 mg extended release tablet Take 1 tablet (25 mg total) by mouth daily 90 tablet 3 01/15/20 25 026 Active aspirin 81 mg chewable tabletIndicatio ns:coronary artery disease Take 1 tablet (81 mg total) by mouth daily 90 tablet 3 01/16/20 25 026 Active losartan (COZAAR) 25 mg tablet TAKE 1 TABLET (25 MG TOTAL) BY MOUTH DAILY 90 tablet 01/28/20 25 Active glipiZIDE (GLUCOTROL) 5 mg tabletIndicatio ns:type 2 diabetes mellitus Take 1 tablet (5 mg total) by mouth every morning 90 tablet 01/28/20 25 Active triamcinolone (KENALOG) 0.5 % cream Apply topically 2 (two) times a day 1 g 01/28/20 25 Active atorvastatin (LIPITOR) 80 mg tablet Take 1 tablet (80 mg total) by mouth nightly 90 tablet 1 02/03/20 25 Active furosemide (LASIX) 20 mg tablet Take 1 tablet (20 mg total) by mouth daily Takes half a tab in the morning. 90 tablet 1 02/03/20 25 Active oxyBUTYnin XL (DITROPAN-XL) 5 mg 24 hr tablet Take 1 tablet (5 mg total) by mouth daily 90 tablet 03/02/20 25 Active FeroSuL 325 mg (65 mg iron) tablet TAKE ONE TABLET BY MOUTH IN THE MORNING 30 tablet 1 04/13/20 25 Active FeroSuL 325 mg (65 mg iron) tablet TAKE ONE TABLET BY MOUTH IN THE MORNING 30 tablet 1 01/05/20 25 025 Discontinued Active Problems Problem Noted Date Diagnosed Date S/P TAVR (transcatheter aortic valve replacement ) 01/13/2025 Nonrheumatic aortic valve stenosis 01/06/2025 Complete heart block 01/06/2025 Hyperglycemia 11/17/2024 Acute on chronic diastolic CHF (congestive heart failure) 11/17/2024 Vocal fold paralysis, left 01/16/2024 Assessment & Plan (01/16/2024 11:35 AM NEEDLE LOOM OPERATOR HELPER): CT Neck MRI Brain Left vocal fold paralysis Modified barium swallow study Hoarseness or changing voice 01/16/2024 Assessment & Plan (01/16/2024 11:35 AM NEEDLE LOOM OPERATOR HELPER): CT Neck MRI Brain Left vocal fold 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 Karen Alvarado Cheng is not up to date on screening tests. They are in need of DEXA- these have been ordered. Patient is not up to date on needed preventative vaccinations; Is in need of Tdap/Td and Zoster. These have been ordered/arranged unless otherwise indicated. Assessment & Plan (08/19/2023 2:19 PM CDT): A yearly Medicare Annual Wellness Visit has been performed today. Karen Anand is not up to date on screening tests. They are in need of DEXA- these have been ordered. Patient is not up to date on needed preventative vaccinations; Is in need of Tdap/Td and Zoster. These have been ordered/arranged unless otherwise indicated. Cystitis 03/04/2023 Assessment & Plan (03/06/2023 12:07 PM CDT): Patient is a who presents for treatment of a urinary tract infection. Patient recently had a urinary tract infection that tested positive for Klebsiella multidrug resistant organism, was told 2 weeks ago that she needed to go to the emergency department was just now showing up. Currently she is stable, no concerning labs, no concerning physical exam findings, she also does not have any urinary complaints. Patient's baseline is stress/urge incontinence, has never had any urinary surgeries, pelvic surgeries, abdominal surgeries. No recent Bourgeois catheter placements. Patient is doing well since being admitted, labs are stable with minimal changes, we will continue as planned. - infectious disease consulted - daily CBC, BMP, Mag - meropenem IV, we will continue until Infectious Disease changes - physical therapy consulted, patient will require pelvic floor therapy as an outpatient -we have discussed with patient about Kegel exercises and pelvic floor physical therapy Mixed stress and urge urinary incontinence 03/04 Assessment & Plan (03/05/2023 11:39 AM CDT): Patient has a history of 3 vaginal deliveries, describes instances consistent with stress and urge incontinence. - at this time urology consult is not necessary. - physical therapy will be consulted for pelvic floor therapy. - we will have patient follow up with her PCP and will encourage her to have a discussion about possible follow up with Urology as an outpatient. Chronic pain syndrome 11/07/2022 Hx of amputation of lesser toe, left 11/07/2022 NSTEMI (non-ST elevated myocardial infarction) 1 Overview (09/14/2022): Added automatically from request for surgery [id number] Assessment & Plan (08/19/2023 2:16 PM CDT): S/p cath, ondapt, statin, Bblocker Following with cardio Asymptomatic at this time Assessment & Plan (11/07/2022 11:47 AM NEEDLE LOOM OPERATOR HELPER): S/p cath, ondapt, statin, Bblocker Following with cardio Asymptomatic at this time Chronic venous insufficiency 08/29/2022 Assessment & Plan (08/30/2022 7:20 AM CDT): Continue compression therapy. Bilateral lower extremity reflux supervisor assembly and packing study ordered. I have sent a referral for our wound care center. She will follow-up in a couple weeks. Hypertension associated with stage 3b chronic kidney disease due to type 2 diabetes mellitus 08/09/2022 Assessment & Plan (03/02/2025 11:38 AM CDT): BP Readings from Last 3 Encounters: 03/02/25 102/60 02/04/25 129/73 01/15/25 158/77 Vitals BP 102/60 (BP Location: Right arm, Patient Position: Sitting) Pulse 102 Resp 16 Ht 170.2 cm (5' 7.01) Wt 94.6 kg (208 lb 9.6 oz) SpO2 95% BMI 32.66 kg/m Lab Results Component Value Date POTASSIUM 4.2 01/14/2025 At goal Continue lasix 10 mg every day, toprol 50 mg xl every day, start losartan 25 mg every day for renal protection Assessment & Plan (12/10/2024 9:06 AM NEEDLE LOOM OPERATOR HELPER): BP Readings from Last 3 Encounters: 12/10/24 128/78 11/21/24 130/63 08/26/24 102/60 Vitals BP 128/78 (BP Location: Right arm, Patient Position: Sitting) Pulse 89 Resp 16 Ht 170.2 cm (5' 7.01) Wt 98 kg (216 lb) SpO2 100% BMI 33.82 kg/m Lab Results Component Value Date POTASSIUM 4.3 11/30/2024 At goal Continue lasix 10 mg every day, toprol 50 mg xl every day, start losartan 25 mg every day for renal protection Assessment & Plan (08/26/2024 11:47 AM CDT): BP Readings from Last 3 Encounters: 08/26/24 102/60 06/02/24 153/88 02/25/24 138/84 Vitals BP 102/60 (BP Location: Left arm, Patient Position: Sitting) Pulse 69 Resp 16 Ht 170.2 cm (5' 7.01) Wt 99.2 kg (218 lb 11.2 oz) SpO2 97% BMI 34.25 kg/m Lab Results Component Value Date POTASSIUM 4.3 05/17/2023 At goal Continue lasix 10 mg every day, toprol 50 mg xl every day, start losartan 25 mg every day for renal protection Assessment & Plan (08/19/2023 2:14 PM CDT): BP Readings from Last 3 Encounters: 08/19/23 152/84 07/16/23 124/76 05/21/23 142/98 Vitals BP 152/84 (BP Location: Right arm, Patient Position: Sitting) Pulse 71 Temp 36.1 C (97 F) Ht 170.2 cm (5' 7) Wt 85.3 kg (188 lb) SpO2 99% BMI 29.44 kg/m Lab Results Component Value Date POTASSIUM 4.3 05/17/2023 At goal Continue lasix 10 mg every day, toprol 50 mg xl every day, start losartan 25 mg every day for renal protection Assessment & Plan (05/21/2023 12:00 PM CDT): BP Readings from Last 3 Encounters: 05/21/23 142/98 05/15/23 128/76 03/07/23 129/67 Vitals BP 142/98 (BP Location: Left arm, Patient Position: Sitting) Pulse 100 Temp 36.8 C (98.3 F) Ht 170.2 cm (5' 7) Wt 84.4 kg (186 lb) SpO2 94% BMI 29.13 kg/m Lab Results Component Value Date POTASSIUM 4.3 05/17/2023 At goal Continue lasix 10 mg every day, toprol 50 mg xl every day, start losartan 25 mg every day for renal protection Assessment & Plan (05/15/2023 2:00 PM CDT): BP Readings from Last 3 Encounters: 05/15/23 128/76 03/07/23 129/67 02/06/23 139/84 Vitals BP 128/76 (BP Location: Left arm, Patient Position: Sitting) Pulse 76 Resp 14 Ht 170.2 cm (5' 7.01) Wt 84.1 kg (185 lb 6.4 oz) SpO2 98% BMI 29.03 kg/m Lab Results Component Value Date POTASSIUM 4.1 03/07/2023 At goal Continue lasix 10 mg every day, toprol 50 mg xl every day, start losartan 25 mg every day for renal protection Assessment & Plan (03/06/2023 12:08 PM CDT): Patient's blood pressure at presentation has been elevated, we will continue her home medications. Blood pressure stable, we will continue as planned. - Toprol-XL 50 mg. Assessment & Plan (02/06/2023 11:28 AM NEEDLE LOOM OPERATOR HELPER): Continue metoprolol xl 50 mg every day, and lasix 20 mg every day Assessment & Plan (11/07/2022 11:47 AM NEEDLE LOOM OPERATOR HELPER): BP Readings from Last 3 Encounters: 11/07/22 125/78 10/12/22 127/68 10/03/22 119/58 Vitals BP 125/78 (BP Location: Left arm, Patient Position: Sitting) Pulse 88 Resp 18 Ht 170.2 cm (5' 7.01) Wt 83 kg (183 lb) BMI 28.66 kg/m Lab Results Component Value Date POTASSIUM 4.0 09/17/2022 At goal - continue current regimen Assessment & Plan (08/09/2022 11:01 AM CDT): HPI: Condition is at goal A&P: Discussed/ordered labs, encouraged healthy, low carbohydrate lifestyle and at least 150min/week of exercise, continue on current regimen Check cmp, cbc - rtc in about 3 months Hypertension associated with diabetes 08/09/2022 Assessment & Plan (08/26/2024 11:47 AM CDT): BP Readings from Last 3 Encounters: 08/26/24 102/60 06/02/24 153/88 02/25/24 138/84 Vitals BP 102/60 (BP Location: Left arm, Patient Position: Sitting) Pulse 69 Resp 16 Ht 170.2 cm (5' 7.01) Wt 99.2 kg (218 lb 11.2 oz) SpO2 97% BMI 34.25 kg/m Lab Results Component Value Date POTASSIUM 4.3 05/17/2023 At goal [place] lasix 10 mg every day, losartan 25 mg every day, toprol xl 50 mg every day Assessment & Plan (02/20/2024 1:28 PM CDT): BP Readings from Last 3 Encounters: 02/20/24 108/80 01/16/24 127/80 11/20/23 138/84 Vitals BP 108/80 (BP Location: Left arm, Patient Position: Sitting) Pulse 79 Resp 16 Ht 170.3 cm (5' 7.05) Wt 93.2 kg (205 lb 8 oz) SpO2 97% BMI 32.14 kg/m Lab Results Component Value Date POTASSIUM 4.3 05/17/2023 At goal [place] lasix 10 mg every day, losartan 25 mg every day, toprol xl 50 mg every day Assessment & Plan (11/20/2023 3:18 PM NEEDLE LOOM OPERATOR HELPER): BP Readings from Last 3 Encounters: 11/20/23 138/84 08/19/23 152/84 07/16/23 124/76 Vitals BP 138/84 (BP Location: Left arm, Patient Position: Sitting) Pulse 82 Resp 16 Ht 170.2 cm (5' 7) Wt 89.8 kg (198 lb) SpO2 98% BMI 31.01 kg/m Lab Results Component Value Date POTASSIUM 4.3 05/17/2023 At goal [place] lasix 10 mg every day, losartan 25 mg every day, toprol xl 50 mg every day Assessment & Plan (08/19/2023 2:14 PM CDT): BP Readings from Last 3 Encounters: 08/19/23 152/84 07/16/23 124/76 05/21/23 142/98 Vitals BP 152/84 (BP Location: Right arm, Patient Position: Sitting) Pulse 71 Temp 36.1 C (97 F) Ht 170.2 cm (5' 7) Wt 85.3 kg (188 lb) SpO2 99% BMI 29.44 kg/m Lab Results Component Value Date POTASSIUM 4.3 05/17/2023 At goal see above Assessment & Plan (05/21/2023 12:00 PM CDT): BP Readings from Last 3 Encounters: 05/21/23 142/98 05/15/23 128/76 03/07/23 129/67 Vitals BP 142/98 (BP Location: Left arm, Patient Position: Sitting) Pulse 100 Temp 36.8 C (98.3 F) Ht 170.2 cm (5' 7) Wt 84.4 kg (186 lb) SpO2 94% BMI 29.13 kg/m Lab Results Component Value Date POTASSIUM 4.3 05/17/2023 At goal see above Assessment & Plan (05/15/2023 2:01 PM CDT): BP Readings from Last 3 Encounters: 05/15/23 128/76 03/07/23 129/67 02/06/23 139/84 Vitals BP 128/76 (BP Location: Left arm, Patient Position: Sitting) Pulse 76 Resp 14 Ht 170.2 cm (5' 7.01) Wt 84.1 kg (185 lb 6.4 oz) SpO2 98% BMI 29.03 kg/m Lab Results Component Value Date POTASSIUM 4.1 03/07/2023 At goal see above Assessment & Plan (02/06/2023 11:28 AM NEEDLE LOOM OPERATOR HELPER): BP Readings from Last 3 Encounters: 02/06/23 139/84 01/15/23 124/68 11/07/22 125/78 Vitals BP 139/84 (BP Location: Left arm, Patient Position: Sitting) Pulse 99 Temp 36.4 C (97.6 F) (Temporal) Resp 18 Ht 172.7 cm (5' 8) Wt 85.2 kg (187 lb 14.4 oz) SpO2 99% BMI 28.57 kg/m Lab Results Component Value Date POTASSIUM 4.0 09/17/2022 At goal continue on dapt, lasix 10 mg every day , metoprolol 50 mg xl every day Assessment & Plan (08/30/2022 7:20 AM CDT): Coreg Assessment & Plan (08/09/2022 11:02 AM CDT): bp at goal - no a1c on file. Check blood work today and titrate as neccesary. Continue januvia and glipizide for now Referral to podiatry placed Hyperlipidemia associated with type 2 diabetes spencer peña 08/09/2022 Assessment & Plan (03/02/2025 11:38 AM CDT): Lab Results Component Value Date CHOL 121 05/17/2023 CHOL 150 09/14/2022 CHOL 216 (H) 08/09/2022 Lab Results Component Value Date HDL 38 (L) 05/17/2023 HDL 31 (L) 09/14/2022 HDL 37 (L) 08/09/2022 Lab Results Component Value Date LDLCALC 61 05/17/2023 LDLCALC 96 09/14/2022 LDLCALC 157 (H) 08/09/2022 Lab Results Component Value Date TRIG 109 05/17/2023 TRIG 115 09/14/2022 TRIG 112 08/09/2022 No results found for: POCCHDLR No results found for: POCNONHDL No results found for: POCCHLPL We will continue patient's Lipitor 80 mg. Repeat lipids still pending Assessment & Plan (12/10/2024 9:06 AM NEEDLE LOOM OPERATOR HELPER): Lab Results Component Value Date CHOL 121 05/17/2023 CHOL 150 09/14/2022 CHOL 216 (H) 08/09/2022 Lab Results Component Value Date HDL 38 (L) 05/17/2023 HDL 31 (L) 09/14/2022 HDL 37 (L) 08/09/2022 Lab Results Component Value Date LDLCALC 61 05/17/2023 LDLCALC 96 09/14/2022 LDLCALC 157 (H) 08/09/2022 Lab Results Component Value Date TRIG 109 05/17/2023 TRIG 115 09/14/2022 TRIG 112 08/09/2022 No results found for: POCCHDLR No results found for: POCNONHDL No results found for: POCCHLPL We will continue patient's Lipitor 80 mg. Repeat lipids still pending Assessment & Plan (08/26/2024 11:47 AM CDT): Lab Results Component Value Date CHOL 121 05/17/2023 CHOL 150 09/14/2022 CHOL 216 (H) 08/09/2022 Lab Results Component Value Date HDL 38 (L) 05/17/2023 HDL 31 (L) 09/14/2022 HDL 37 (L) 08/09/2022 Lab Results Component Value Date LDLCALC 61 05/17/2023 LDLCALC 96 09/14/2022 LDLCALC 157 (H) 08/09/2022 Lab Results Component Value Date TRIG 109 05/17/2023 TRIG 115 09/14/2022 TRIG 112 08/09/2022 No results found for: POCCHDLR No results found for: POCNONHDL No results found for: POCCHLPL We will continue patient's Lipitor 80 mg. Assessment & Plan (03/04/2023 1:48 PM CDT): We will continue patient's Lipitor 80 mg. Assessment & Plan (02/06/2023 11:27 AM NEEDLE LOOM OPERATOR HELPER): Lab Results Component Value Date CHOL 150 09/14/2022 CHOL 216 (H) 08/09/2022 Lab Results Component Value Date HDL 31 (L) 09/14/2022 HDL 37 (L) 08/09/2022 Lab Results Component Value Date LDLCALC 96 09/14/2022 LDLCALC 157 (H) 08/09/2022 Lab Results Component Value Date TRIG 115 09/14/2022 TRIG 112 08/09/2022 No results found for: POCCHDLR No results found for: POCNONHDL No results found for: POCCHLPL cotninue lipitor 80 mg every day - consider decreasing as pt is > 80 Assessment & Plan (11/07/2022 11:48 AM NEEDLE LOOM OPERATOR HELPER): Lab Results Component Value Date CHOL 150 09/14/2022 CHOL 216 (H) 08/09/2022 Lab Results Component Value Date HDL 31 (L) 09/14/2022 HDL 37 (L) 08/09/2022 Lab Results Component Value Date LDLCALC 96 09/14/2022 LDLCALC 157 (H) 08/09/2022 Lab Results Component Value Date TRIG 115 09/14/2022 TRIG 112 08/09/2022 No results found for: POCCHDLR No results found for: POCNONHDL No results found for: POCCHLPL not at goal of LDL < 70. Continue high intensity statin Assessment & Plan (08/09/2022 11:02 AM CDT): HPI: Condition is unknown, no data to review at this time to make an evaluation A&P: Discussed/ordered labs, encouraged healthy, low carbohydrate lifestyle continue on current regimen Class 1 obesity due to exces s calories with serious comorbidity and body mass index (BMI) of 34.0 to 34.9 in adult 08/09/2022 Assessment & Plan (03/02/2025 11:26 AM CDT): Wt Readings from Last 3 Encounters: 03/02/25 94.6 kg (208 lb 9.6 oz) 01/14/25 103.6 kg (228 lb 6.3 oz) 12/31/24 95.7 kg (211 lb) BMI Readings from Last 3 Encounters: 03/02/25 32.66 kg/m 01/14/25 35.76 kg/m 12/31/24 33.05 kg/m Not at goal of bmi <30 Continue diet and exercise BMI Follow-up includes: nutrition counseling and exercise counseling. Assessment & Plan (12/10/2024 9:20 AM NEEDLE LOOM OPERATOR HELPER): Wt Readings from Last 3 Encounters: 12/10/24 98 kg (216 lb) 11/17/24 98.3 kg (216 lb 11.4 oz) 08/26/24 99.2 kg (218 lb 11.2 oz) BMI Readings from Last 3 Encounters: 12/10/24 33.82 kg/m 11/17/24 33.94 kg/m 08/26/24 34.25 kg/m Not at goal of bmi <30 Continue diet and exercise BMI Follow-up includes: nutrition counseling and exercise counseling. Assessment & Plan (08/26/2024 11:46 AM CDT): Wt Readings from Last 3 Encounters: 08/26/24 99.2 kg (218 lb 11.2 oz) 06/02/24 95.3 kg (210 lb) 02/25/24 92.5 kg (204 lb) BMI Readings from Last 3 Encounters: 08/26/24 34.25 kg/m 06/02/24 32.89 kg/m 02/25/24 31.95 kg/m Not at goal of bmi <30 Continue diet and exercise BMI Follow-up includes: nutrition counseling and exercise counseling. Assessment & Plan (02/20/2024 1:28 PM CDT): Wt Readings from Last 3 Encounters: 02/20/24 93.2 kg (205 lb 8 oz) 01/16/24 92.4 kg (203 lb 12.8 oz) 11/20/23 89.8 kg (198 lb) BMI Readings from Last 3 Encounters: 02/20/24 32.14 kg/m 01/16/24 31.91 kg/m 11/20/23 31.01 kg/m Not at goal of bmi <30 Continue diet and exercise BMI Follow-up includes: nutrition counseling and exercise counseling. Assessment & Plan (11/20/2023 3:18 PM NEEDLE LOOM OPERATOR HELPER): Wt Readings from Last 3 Encounters: 11/20/23 89.8 kg (198 lb) 08/19/23 85.3 kg (188 lb) 07/16/23 86.2 kg (190 lb) BMI Readings from Last 3 Encounters: 11/20/23 31.01 kg/m 08/19/23 29.44 kg/m 07/16/23 29.76 kg/m Not at goal of bmi <30 Continue diet and exercise BMI Follow-up includes: nutrition counseling and exercise counseling. Assessment & Plan (08/19/2023 2:15 PM CDT): Wt Readings from Last 3 Encounters: 08/19/23 85.3 kg (188 lb) 07/16/23 86.2 kg (190 lb) 05/21/23 84.4 kg (186 lb) BMI Readings from Last 3 Encounters: 08/19/23 29.44 kg/m 07/16/23 29.76 kg/m 05/21/23 29.13 kg/m Not at goal of bmi <30 Continue diet and exercise BMI Follow-up includes: nutrition counseling and exercise counseling. Assessment & Plan (05/21/2023 12:00 PM CDT): Wt Readings from Last 3 Encounters: 05/21/23 84.4 kg (186 lb) 05/15/23 84.1 kg (185 lb 6.4 oz) 03/04/23 82.2 kg (181 lb 3.5 oz) BMI Readings from Last 3 Encounters: 05/21/23 29.13 kg/m 05/15/23 29.03 kg/m 03/04/23 28.38 kg/m Not at goal of bmi <30 Continue diet and exercise BMI Follow-up includes: nutrition counseling and exercise counseling. Assessment & Plan (05/15/2023 2:01 PM CDT): Wt Readings from Last 3 Encounters: 05/15/23 84.1 kg (185 lb 6.4 oz) 03/04/23 82.2 kg (181 lb 3.5 oz) 02/06/23 85.2 kg (187 lb 14.4 oz) BMI Readings from Last 3 Encounters: 05/15/23 29.03 kg/m 03/04/23 28.38 kg/m 02/06/23 28.57 kg/m Not at goal of bmi <30 Continue diet and exercise BMI Follow-up includes: nutrition counseling and exercise counseling. Assessment & Plan (02/06/2023 11:32 AM NEEDLE LOOM OPERATOR HELPER): Wt Readings from Last 3 Encounters: 02/06/23 85.2 kg (187 lb 14.4 oz) 01/15/23 82.6 kg (182 lb) 11/07/22 83 kg (183 lb) BMI Readings from Last 3 Encounters: 02/06/23 28.57 kg/m 01/15/23 27.67 kg/m 11/07/22 28.66 kg/m At goal of bmi <30 Continue diet and exercise BMI Follow-up includes: nutrition counseling and exercise counseling. Assessment & Plan (11/07/2022 11:47 AM NEEDLE LOOM OPERATOR HELPER): Wt Readings from Last 3 Encounters: 11/07/22 83 kg (183 lb) 10/12/22 83.5 kg (184 lb) 10/03/22 86.2 kg (190 lb) BMI Readings from Last 3 Encounters: 11/07/22 28.66 kg/m 10/12/22 28.82 kg/m 10/03/22 28.89 kg/m at goal of bmi <30 Continue diet and exercise BMI Follow-up includes: nutrition counseling and exercise counseling. Assessment & Plan (08/09/2022 10:44 AM CDT): BMI Follow-up includes: nutrition counseling and exercise counseling. Peripheral arterial disease 08/09/2022 Assessment & Plan (08/19/2023 2:16 PM CDT): Following with vascular Continue current regimen Otherwise stable Assessment & Plan (03/05/2023 11:40 AM CDT): Patient has a history of PAD, peripheral pulses at presentation are 1+ barely palpable Assessment & Plan (08/30/2022 7:20 AM CDT): Bilateral lower extremity arterial duplexes and ABIs ordered for to evaluate her stents. Continue Eliquis and statin therapy. Strict glucose control. Assessment & Plan (08/09/2022 10:47 AM CDT): Will get her establish with vascular surgery - had a toe amputation 2/2 to dm and poor blood flow Hx of myocardial infarction 08/09/2022 Assessment & Plan (12/10/2024 9:06 AM NEEDLE LOOM OPERATOR HELPER): S/p nstemi Follow up cardio Appt next week Assessment & Plan (11/07/2022 11:48 AM NEEDLE LOOM OPERATOR HELPER): Following with cardio on dapt Assessment & Plan (08/09/2022 11:03 AM CDT): Referral to cardio placed Ordered tte for eval Referral vascular for follow up as well Type 2 diabetes mellitus wit h stage 3b chronic kidney disease, without long-term current use of insulin Assessment & Plan (03/02/2025 11:32 AM CDT): Lab Results Component Value Date HGBA1C 8.0 12/10/2024 HGBA1C 7.2 08/26/2024 HGBA1C 8.1 02/20/2024 Lab Results Component Value Date LDLCALC 61 05/17/2023 CREATININE 1.52 (H) 01/14/2025 Not at goal at this time - glipizide 5 mg qam, januvia 100 mg every day -losartan 25 mg every day for renal protection Has complicatiuons of DM - HLD, PAD, hx of [place], CKD stage 3 Chemistry Lab Results Component Value Date SODIUM 139 01/14/2025 POTASSIUM 4.2 01/14/2025 CHLORIDE 108 01/14/2025 CO2 21 (L) 01/14/2025 ANIONGAP 10 01/14/2025 BUNSER 27 (H) 01/14/2025 CREATININE 1.52 (H) 01/14/2025 GLUCOSE 118 01/14/2025 CALCIUM 8.2 (L) 01/14/2025 BILITOT 0.4 01/14/2025 ALBUMIN 3.0 (L) 01/14/2025 GFRNAA 34 (L) 01/14/2025 ALKPHOS 75 01/14/2025 AST 21 01/14/2025 ALT 10 01/14/2025 PHOS 4.5 01/13/2025 MAGNESIUM 2.1 01/14/2025 Has not really been checking sugars Needs to keep a log C/w tresiba to 15 units Assessment & Plan (12/10/2024 9:21 AM NEEDLE LOOM OPERATOR HELPER): Lab Results Component Value Date HGBA1C 8.0 12/10/2024 HGBA1C 7.2 08/26/2024 HGBA1C 8.1 02/20/2024 Lab Results Component Value Date LDLCALC 61 05/17/2023 CREATININE 1.50 (H) 11/30/2024 Not at goal at this time C/w tresiba 10units nightly - glipizide 5 mg qam, januvia 100 mg every day -losartan 25 mg every day for renal protection Has complicatiuons of DM - HLD, PAD, hx of [place], CKD stage 3 Chemistry Lab Results Component Value Date SODIUM 139 11/30/2024 POTASSIUM 4.3 11/30/2024 CHLORIDE 105 11/30/2024 CO2 25 11/30/2024 ANIONGAP 9 11/30/2024 BUNSER 32 (H) 11/30/2024 CREATININE 1.50 (H) 11/30/2024 GLUCOSE 143 11/30/2024 CALCIUM 8.8 11/30/2024 BILITOT 0.4 11/30/2024 ALBUMIN 3.3 (L) 11/30/2024 GFRNAA 34 (L) 11/30/2024 ALKPHOS 73 11/30/2024 AST 22 11/30/2024 ALT 15 11/30/2024 PHOS 3.3 07/16/2022 MAGNESIUM 1.8 03/07/2023 Not at goal but pt said she had one sugar of 20 the other day Uinsure if this is correct or an error Decrease tresiba to 10 units if she starts jardiance Check am sugars if persistantly elevated, then go back up to 15 units on tresiba States that sugar was checked yesterday AM and was 95 Assessment & Plan (08/26/2024 11:48 AM CDT): Lab Results Component Value Date HGBA1C 7.2 08/26/2024 HGBA1C 8.1 02/20/2024 HGBA1C 8.0 08/19/2023 Lab Results Component Value Date LDLCALC 61 05/17/2023 CREATININE 1.64 (H) 03/04/2024 Not at goal at this time C/w tresiba 10units nightly - glipizide 5 mg qam, januvia 100 mg every day -losartan 25 mg every day for renal protection Has complicatiuons of DM - HLD, PAD, hx of [place], CKD stage 3 Chemistry Lab Results Component Value Date SODIUM 135 05/17/2023 POTASSIUM 4.3 05/17/2023 CHLORIDE 99 05/17/2023 CO2 27 05/17/2023 ANIONGAP 9 05/17/2023 BUNSER 22 05/17/2023 CREATININE 1.64 (H) 03/04/2024 GLUCOSE 226 (H) 05/17/2023 CALCIUM 8.7 05/17/2023 BILITOT 0.5 05/17/2023 ALBUMIN 3.8 05/17/2023 GFRNAA 44 05/17/2023 ALKPHOS 88 05/17/2023 AST 15 05/17/2023 ALT 9 05/17/2023 PHOS 3.3 07/16/2022 MAGNESIUM 1.8 03/07/2023 Not at goal but pt said she had one sugar of 20 the other day Uinsure if this is correct or an error Will icnrease tresiba to 15 untsi fi that was an error or patient remembered incorrectly Assessment & Plan (02/20/2024 1:48 PM CDT): Lab Results Component Value Date HGBA1C 8.1 02/20/2024 HGBA1C 8.0 08/19/2023 HGBA1C 9.7 05/15/2023 Lab Results Component Value Date LDLCALC 61 05/17/2023 CREATININE 1.60 (H) 01/27/2024 Not at goal at this time C/w tresiba 10units nightly - glipizide 5 mg qam, januvia 100 mg every day -losartan 25 mg every day for renal protection Has complicatiuons of DM - HLD, PAD, hx of [place], CKD stage 3 Chemistry Lab Results Component Value Date SODIUM 135 05/17/2023 POTASSIUM 4.3 05/17/2023 CHLORIDE 99 05/17/2023 CO2 27 05/17/2023 ANIONGAP 9 05/17/2023 BUNSER 22 05/17/2023 CREATININE 1.60 (H) 01/27/2024 GLUCOSE 226 (H) 05/17/2023 CALCIUM 8.7 05/17/2023 BILITOT 0.5 05/17/2023 ALBUMIN 3.8 05/17/2023 GFRNAA 44 05/17/2023 ALKPHOS 88 05/17/2023 AST 15 05/17/2023 ALT 9 05/17/2023 PHOS 3.3 07/16/2022 MAGNESIUM 1.8 03/07/2023 Not at goal but pt said she had one sugar of 20 the other day Uinsure if this is correct or an error Will icnrease tresiba to 15 untsi fi that was an error or patient remembered incorrectly Assessment & Plan (11/20/2023 3:18 PM NEEDLE LOOM OPERATOR HELPER): Lab Results Component Value Date HGBA1C 8.0 08/19/2023 HGBA1C 9.7 05/15/2023 HGBA1C 9.6 (H) 02/14/2023 Lab Results Component Value Date LDLCALC 61 05/17/2023 CREATININE 1.23 (H) 05/17/2023 Not at goal at this time C/w tresiba 10units nightly - glipizide 5 mg qam, januvia 100 mg every day -losartan 25 mg every day for renal protection Has complicatiuons of DM - HLD, PAD, hx of [place], CKD stage 3 Chemistry Lab Results Component Value Date SODIUM 135 05/17/2023 POTASSIUM 4.3 05/17/2023 CHLORIDE 99 05/17/2023 CO2 27 05/17/2023 ANIONGAP 9 05/17/2023 BUNSER 22 05/17/2023 CREATININE 1.23 (H) 05/17/2023 GLUCOSE 226 (H) 05/17/2023 CALCIUM 8.7 05/17/2023 BILITOT 0.5 05/17/2023 ALBUMIN 3.8 05/17/2023 GFRNAA 44 05/17/2023 ALKPHOS 88 05/17/2023 AST 15 05/17/2023 ALT 9 05/17/2023 PHOS 3.3 07/16/2022 MAGNESIUM 1.8 03/07/2023 Assessment & Plan (08/19/2023 2:14 PM CDT): Lab Results Component Value Date HGBA1C 9.7 05/15/2023 HGBA1C 9.6 (H) 02/14/2023 HGBA1C 10.5 02/06/2023 Lab Results Component Value Date LDLCALC 61 05/17/2023 CREATININE 1.23 (H) 05/17/2023 Not at goal at this time Could be compliance issues as well C/w lantus 10units nightly Has complicatiuons of DM - HLD, PAD, hx of [place], CKD stage 3 Chemistry Lab Results Component Value Date SODIUM 135 05/17/2023 POTASSIUM 4.3 05/17/2023 CHLORIDE 99 05/17/2023 CO2 27 05/17/2023 ANIONGAP 9 05/17/2023 BUNSER 22 05/17/2023 CREATININE 1.23 (H) 05/17/2023 GLUCOSE 226 (H) 05/17/2023 CALCIUM 8.7 05/17/2023 BILITOT 0.5 05/17/2023 ALBUMIN 3.8 05/17/2023 GFRNAA 44 05/17/2023 ALKPHOS 88 05/17/2023 AST 15 05/17/2023 ALT 9 05/17/2023 PHOS 3.3 07/16/2022 MAGNESIUM 1.8 03/07/2023 Assessment & Plan (05/21/2023 12:07 PM CDT): Lab Results Component Value Date HGBA1C 9.7 05/15/2023 HGBA1C 9.6 (H) 02/14/2023 HGBA1C 10.5 02/06/2023 Lab Results Component Value Date LDLCALC 61 05/17/2023 CREATININE 1.23 (H) 05/17/2023 Not at goal at this time D/c jardiance - pt could not afford it Is actually worse than previous, unsure why Could be compliance issues as well C/w lantus 10units nightly Has complicatiuons of DM - HLD, PAD, hx of [place], CKD stage 3 Chemistry Lab Results Component Value Date SODIUM 135 05/17/2023 POTASSIUM 4.3 05/17/2023 CHLORIDE 99 05/17/2023 CO2 27 05/17/2023 ANIONGAP 9 05/17/2023 BUNSER 22 05/17/2023 CREATININE 1.23 (H) 05/17/2023 GLUCOSE 226 (H) 05/17/2023 CALCIUM 8.7 05/17/2023 BILITOT 0.5 05/17/2023 ALBUMIN 3.8 05/17/2023 GFRNAA 44 05/17/2023 ALKPHOS 88 05/17/2023 AST 15 05/17/2023 ALT 9 05/17/2023 PHOS 3.3 07/16/2022 MAGNESIUM 1.8 03/07/2023 Assessment & Plan (05/15/2023 1:59 PM CDT): Lab Results Component Value Date HGBA1C 9.7 05/15/2023 HGBA1C 9.6 (H) 02/14/2023 HGBA1C 10.5 02/06/2023 Lab Results Component Value Date LDLCALC 96 09/14/2022 CREATININE 1.33 (H) 03/07/2023 Not at goal at this time Increase jardiance 10 mg every day Is actually worse than previous, unsure why Could be compliance issues as well Will start lantus 10units nightly Has complicatiuons of DM - HLD, PAD, hx of [place], CKD stage 3 Chemistry Lab Results Component Value Date SODIUM 138 03/07/2023 POTASSIUM 4.1 03/07/2023 CHLORIDE 103 03/07/2023 CO2 24 03/07/2023 ANIONGAP 11 03/07/2023 BUNSER 33 (H) 03/07/2023 CREATININE 1.33 (H) 03/07/2023 GLUCOSE 296 (H) 03/07/2023 CALCIUM 8.7 03/07/2023 BILITOT 0.2 03/04/2023 ALBUMIN 3.4 (L) 03/04/2023 GFRNAA 40 03/07/2023 ALKPHOS 86 03/04/2023 AST 14 03/04/2023 ALT 9 03/04/2023 PHOS 3.3 07/16/2022 MAGNESIUM 1.8 03/07/2023 Assessment & Plan (03/06/2023 12:09 PM CDT): Last HbA1c: 8.3; BG 251 - Pt placed on SSI - Lantus dose is 10 units nightly - DM educator consulted - diet and nutrition discused w/ pt. Stressed importance of exercise - DM complications present on admission: Hyperlipidemia, peripheral arterial disease, history of [place], CKD stage 3 B Assessment & Plan (02/06/2023 11:56 AM NEEDLE LOOM OPERATOR HELPER): Lab Results Component Value Date HGBA1C 10.1 02/06/2023 HGBA1C 8.4 (H) 08/09/2022 Lab Results Component Value Date LDLCALC 96 09/14/2022 CREATININE 300 02/06/2023 Worsening at this time Was previously on metformin and did not tolerate it due to diarrhea Will start jardiance 10 mg every day, increase glipizide Assessment & Plan (11/07/2022 11:47 AM NEEDLE LOOM OPERATOR HELPER): Lab Results Component Value Date HGBA1C 8.4 (H) 08/09/2022 Lab Results Component Value Date LDLCALC 96 09/14/2022 CREATININE 1.52 (H) 09/17/2022 Not at goal - recheck a1c and titrate medications based on new a1c Referral to podiatry Due for eye exam Mitral valve insufficiency Asymptomatic bacteriuria Resolved Problems Problem Noted Date Diagnosed Date Resolved Date Shortness of breath 05/21/2023 08/19/20 23 Overweight (BMI 25.0-29.9) 03/04/2023 0 05/15/2023 Assessment & Plan (03/06/2023 12:08 PM CDT): Body mass index is 28.38 kg/m . - discussed risks of obesity and association with chronic medical problems including HTN, DM, and ESA - advised patient on importance of maintaining a diet and exercise regimen including cardiovascular and weight-bearing exercises - nutrition consultation Chronic UTI 09/15/2022 08/26/2024 Assessment & Plan (03/04/2023 1:46 PM CDT): Continue as under cystitis Assessment & Plan (09/15/2022 7:48 PM CDT): Will refer to urology STEMI (ST elevation myocardial infarction) 09/14/2022 08/19/2023 Immunizations Immunization Administration Dates Next Due Influenza, Quadrivalent, Hig h Dose, Preservative Free, Intrr 08/19/2023,09/12/2022 Influenza, Trivalent, High D ose, Split, Preservative Free, Intramuscular 08/26/2024 Influenza, Unspecified 08/09/2022(Deferr ed: Patient Refused),01/30/2022(Deferred: Patient Refused),09/01/2021(Deferred: Patient Refused),07/13/2019,08/05/2018 Pneumococcal Conjugate Pcv20 08/26/2024 Pneumococcal Polysaccharide PPV23 03/23/2020 Pneumococcal, Unspecified 11/07/2022(Deferred: P atient Refused) Social History Tobacco Use Types Packs/Day Years Used Date Smoking Tobacco: Never Smokeless Tobacco: Never Tobacco Cessation:Counseling Given: Not Answered [facility] Utilities Answer Date Recorded In the past 12 months has th e [employer], [employer], oil, or water [employer] threatened to shut off services in your home? No 01/15/2025 Social Connection and Isolation Panel [NHANES] A nswer Date Recorded In a typical week, how many times do you talk on the phone with family, friends, or neighbors? Once a week 01/15/2025 How often do you get together with friends or re latives? Never 01/15/2025 How often do you attend uatsdin or sabianism serv ices? Never 01/15/2025 Do you belong to any clubs o r organizations such as uatsdin groups, unions, fraternal or athletic groups, or school groups? No 01/15/2025 How often do you attend meet ings of the clubs or organizations you belong to? Never 01/15/2025 Are you , , di vorced, , never , or living with a partner? 01/15/2025 AUDIT-C Answer Date Recorded Q1: How often do you have a drink containing alcohol? Never 01/15/2025 Q2: How many drinks containi ng alcohol do you have on a typical day when you are drinking? Patient does not drink Q3: How often do you have si x or more drinks on one occasion? Never 01/15/2025 Overall Financial Resource Strain (CARDIA) Answe r Date Recorded How hard is it for you to pa y for the very basics like food, housing, medical care, and heating? Not hard at all 01/15/2025 PHQ-2 Answer Date Recorded PHQ-2 Total Score (If total score is 3 or more points, staff should administer the PHQ-9) 0 03/02/2025 Hunger Vital Sign Answer Date Recorded Within the past 12 months, y ou worried that your food would run out before you got the money to buy more. Never true 01/15/20 25 Within the past 12 months, t he food you bought just didn't last and you didn't have money to get more. Never true 01/15/2025 PRAPARE - Transportation Answer Date Re corded In the past 12 months, has l ack of transportation kept you from medical appointments or from getting medications? No 01/02 In the past 12 months, has l ack of transportation kept you from meetings, work, or from getting things needed for daily living? No 01/15/2025 Housing Stability Vital Sign Answer Rito e Recorded In the last 12 months, was t here a time when you were not able to pay the mortgage or rent on time? No 01/15/2025 In the past 12 months, how m any times have you moved where you were living? 0 01/15/2025 At any time in the past 12 m [facility], were you homeless or living in a long-term (including now)? No 01/15/2025 Personal Safety Answer Date Recorded Have you ever been in or are you currently in a harmful physical or emotional relationship or is someone making you feel afraid or unsafe? Denies 01/13/2025 Education Answer Date Recorded What is the highest level of school you have completed or the highest degree you have received? 12th grade 03/05/2023 Comments No Sex and Gender Information Value Date Recorded Sex Assigned at Not on file Legal Sex Female 1:13 PM NEEDLE LOOM OPERATOR HELPER Gender Identity Not on file Sexual Orientation Not on file Last Filed Vital Signs Vital Sign Reading Time Taken Comments Blood Pressure 143/75 03/09/2025 3:09 PM CDT Pulse 85 03/09/2025 3:09 PM CDT Temperature 37 C (98.6 F) 01/15/2025 8:16 AM NEEDLE LOOM OPERATOR HELPER Respiratory Rate 16 03/09/2025 3:09 PM CDT Oxygen Saturation 95% 03/02/2025 11: 08 AM CDT Inhaled Oxygen Concentration - - Weight 94.3 kg (207 lb 14.4 oz) 03/09/2025 3:09 PM CDT Height 170.2 cm (5' 7) 03/09/2025 3:09 PM CDT Body Mass Index 32.56 03/09/2025 3:09 PM CDT Plan of Treatment Not on file Medical Devices Implanted Type Area Vp Product Device Identifier Shelf Expiration Date Model / Serial / Lot Biot[employer]ik Inc Active Fixation Steroid Eluting Is 1 Connector Latex Free Sterile Atrial Ventricular Atrial Ventricular Solia 53cm [id number] - [id number] - [id number] Implanted:Qty: 1 on 01/14/2025 by Kristopher Cortes MD at [facility] Lead N/A: Atria [employer]ot[employer] Inc 01/01/2027 [id number] / [id number] / Biotronik Inc Active Fixation Steroid Eluting Is 1 Connector Latex Free Sterile Atrial Ventricular Atrial Ventricular Solia 60cm [id number] - [id number] - [id number] Implanted:Qty: 1 on 01/14/2025 by Kristopher Cortes MD at [facility] Lead N/A: Ventricle [employer]ot[employer] Inc 10/31/2026 [id number] / [id number] / [employer] Genlot Angio-Seal Vip 6fr Closere Device [id number] - [id number] Implanted:Qty: 1 on 11/18/2024 by Valente Jacob MD at [facility] Other - see comments Ter[employer] Chase 07/06/2025 [id number] / / [id number] Medtronic Inc Tyrx Absorbable Antibacterial Envelope Med 2.7x2.5in [id number] - [id number] - [id number] Implanted:Qty: 1 on 01/14/2025 by Kristopher Cortes MD at [facility] Other - see comments Left: Chest Medtronic Inc 10/10/2025 [id number] / [id number]) [id number] / [id number] Description:Absorbable Antib acterial Envelope Biotronik Inc Pacemaker Implantable Amvia Edge Dual Chamb Rate-Responsive [id number] - [id number] - [id number] Implanted:Qty: 1 on 01/14/2025 by Kristopher Cortes MD at [facility] Pacemaker Left: Chest Biotronik Inc 05/31/2026 [id number] / [id number] / Ter[employer] Chase Angio-Seal Vip 6fr Closere Device [id number] - [id number] Implanted:Qty: 1 on 09/14/2022 by Valente Jacob MD at [facility] 05/01/2023 [id number] / / [id number] [employer] V[employer] System Closure Repair Femoral Artery Suture Mediated Perclose Prostyle 50356-54 - [id number] Implanted:Qty: 1 on 01/13/2025 by Malik Reddy MD at [facility] Vascular 10/01/2026 [id number] / / [id number] [employer] V[employer] System Closure Repair Femoral Artery Suture Mediated Perclose Prostyle 26565-29 - [id number] Implanted:Qty: 1 on 01/13/2025 by Malik Reddy MD at [facility] Vascular 10/01/2026 [id number] / / [id number] [employer] Valve Aortic Trnscath Brayan 3 Ultra Resilia 23mm [id number] - [id number] - [id number] Implanted:Qty: 1 on 01/13/2025 by Malik Reddy MD at [facility] [employer] 07/02/2027 [id number] / [id number] / Ter[employer] Chase Angio-Seal Vip 6fr Closere Device [id number] - [id number] Implanted:Qty: 1 on 01/13/2025 by Malik Reddy MD at [facility] 08/11/2025 [id number] / / Tero [employer] Chase Angio-Seal Vip 6fr Closere Device [id number] - [id number] Implanted:Qty: 1 on 01/13/2025 by Malik Reddy MD at [facility] 08/11/2025 [id number] / / Procedures Procedure Name Priority Date/Time Associated Diagnosis Comments DEVICE CHECK - REMOTE Routine 04/15/2025 2:48 PM CDT CHB (complete heart block) (HCC) Pacemaker TRANSTHORACIC ECHO (TTE) COMPLETE W DOPPLER/CF WO CONTRAST Routine 02/10/2025 11:12 AM CDT S/P TAVR (transcatheter aortic valve replacement) DEVICE CHECK - IN OFFICE Routine 02/04/2025 1:04 PM NEEDLE LOOM OPERATOR HELPER CHB (complete heart block) (HCC) Pacemaker EGFR Routine 01/14/2025 4:56 AM NEEDLE LOOM OPERATOR HELPER POCT HEMOGLOBIN A1C Routine 12/10/2024 9 :03 AM NEEDLE LOOM OPERATOR HELPER Type 2 diabetes mellitus with stage 3b chronic kidney disease, without long-term current use of insulin (HCC) LIPID PANEL Routine 05/17/2023 12:47 PM CDT Type 2 diabetes mellitus with stage 3b chronic kidney disease, without long-term current use of insulin (HCC) ALBUMIN CREATININE RATIO, URINE Routine 05/17/2023 12:47 PM CDT Type 2 diabetes mellitus with stage 3b chronic kidney disease, without long-term current use of insulin (HCC) Hypertension associated with diabetes (HCC) from Last 3 Months or Most Recently Relevant to Health Maintenance Results * DEVICE CHECK - REMOTE (04/15/2025 2:48 PM CDT) Anatomical Region Laterality Modality Other Narrative 04/22/2025 4:17 AM CDT Images from the original result were not included. 04/15/2025 MePlease quarterly remote device check NOTE The following shows snippets from the complete quarterly report. The complete report in its entirety is attached to this Result Text in Forensic Chemist Presenting EGM Last in-office check 02/04/2025 6 month f/u office visit 09/24/2026 DC PPM, implanted 01/14/2025 Battery longevity = 100% AT/AF burden 0% PVC burden 0% Ap 2% RVp 99%(CHB) No event/alert episodes recorded since last in-office check on 02/04/2025. Reviewed By Brittney Santillan FLUTE TEACHER at 3:49 PM Review and Recommendations below (please forward an in-basket message to your MA if check requires attention) ATTESTATION I have reviewed the device interrogation report associated with this encounter in detail. I agree with the documentation recorded/scanned into the electronic medical record. Recommendations: Continue current device follow-up. Valente Jacob MD us Valente Jacob MD [facility] PROCEDU RES Final Result * TRANSTHORACIC ECHO (TTE) COMPLETE W DOPPLER/CF WO CONTRAST (02/10/2025 11:12 AM CDT) Anatomical Region Laterality Modality Ultrasound 02/10/2025 9:32 AM CDT Narrative 02/10/2025 12:54 PM CDT [address] [address] Echocardiogram Report Patient Name: KAREN ANAND : 1940 Study Date: 02/10/2025 9:32:14 AM Gender: F Tech: KATHERIN Location: Echo Lab 1 Ref Provider: VALENTE JACOB Height(Cm): BSA: Weight(Kg): Quality: Adequate Order Provider: VALENTE JACOB PROCEDURES: Echocardiographic Report: Transthoracic echocardiogram with complete 2D, M-Mode, and color Doppler examination. INDICATIONS: S/P TAVR and Z95.2 Presence of prosthetic heart valve. MEASUREMENTS: 2D/MM Value Range Doppler Value Range EF Teich MM 69.3 % [ 54.0 - 74.0 ] GARTH Vmax 2.59 cm2 EF Mod BP 70 % [ 54 - 74 ] AV Mean PG 5 mmHg LVIDd MM 3.55 cm [ 3.80 - 5.20 ] AV Peak Cody 1.42 m/s [ 1.00 - 1.70 ] LVIDs MM 2.20 cm [ 2.20 - 3.50 ] AV VTI 23.01 cm LVPWd MM 1.47 cm [ 0.60 - 0.90 ] LVOT Diam 2.34 cm IVSd MM 1.35 cm [ 0.60 - 0.90 ] LVOT Peak Cody 0.86 m/s [ 0.70 - 1.10 ] LA Dimension MM 3.44 cm [ 2.70 - 3.80 ] LVOT VTI 16.16 cm AoR Diam MM 3.58 cm [ 2.70 - 3.70 ] MV E Peak Cody 1.24 m/s [ 0.60 - 1.30 ] MV A Peak Cody 1.72 m/s [ 1.00 - 1.20 ] MV Mean PG 6 mmHg MV PHT 54 msec [ 20 - 100 ] MVA 4.10 MV Decel Time 94 msec [ 104 - 258 ] PV Peak Cody 1.13 m/s [ 0.40 - 0.80 ] HI Peak Cody 0.97 m/s TR Peak Cody 2.78 m/s [ 1.00 - 2.80 ] TR Peak PG 31 mmHg RVSP 39.00 mmHg [ 10.00 - 36.00 ] E` 0.03 m/s E/E` 37.98 [ <= 10.00 ] PA Pressure 39.00 mmHg [ 10.00 - 36.00 ] 2D/MM Value Range Doppler Value Range - FINDINGS: Atrial Septum: Normal atrial septum. Left Ventricle: Mild concentric left ventricular hypertrophy. Reduced left ventricular cavity size. Hyperdynamic left ventricular function. No focal wall motion abnormalities. Impaired diastolic relaxation Grade I. Ejection fraction is measured at 70 %. Left Atrium: The left atrium is normal in size. Right Ventricle: Normal right ventricular size. Normal right ventricular systolic function. Linear artifact in right ventricle suggestive of catheter(s), pacemaker lead(s), or ICD lead(s). Right Atrium: The right atrium is normal in size. Aortic Valve: Aortic cusps appear mildly sclerotic. Trace aortic valve regurgitation. Normal appearing aortic valve prosthesis. Normal appearing aortic valve bioprosthesis. Mitral Valve: Mitral valve leaflets appear mildly thickened. Mild mitral annular calcification. Trivial regurgitation of the mitral valve. Pulmonic Valve: Normal structure of the pulmonic valve. Trivial regurgitation in the pulmonic valve. Tricuspid Valve: Normal structure of the tricuspid valve. Mild pulmonary hypertension based on right ventricular systolic pressure. Estimated peak RVSP is 39 mmHg. Mild tricuspid regurgitation. Pericardium: Normal pericardium with no significant pericardial effusion. Aorta: Ascending aorta is normal. Descending aorta is normal. There is mild atherosclerosis in the aortic root. IVC: Normal size and normal respiratory collapse consistent with normal right atrial pressure (<5 mmHg). Pulmonary Artery: Pulmonary artery not well visualized. CONCLUSIONS: Mild concentric left ventricular hypertrophy. Reduced left ventricular cavity size. Hyperdynamic left ventricular function. No focal wall motion abnormalities. Impaired diastolic relaxation Grade I. Ejection fraction is measured at 70 %. Normal right ventricular size. Normal right ventricular systolic function. Linear artifact in right ventricle suggestive of catheter(s), pacemaker lead(s), or ICD lead(s). Mitral valve leaflets appear mildly thickened. Mild mitral annular calcification. Trivial regurgitation of the mitral valve. Trace aortic valve regurgitation. Normal appearing aortic valve prosthesis. Normal appearing aortic valve bioprosthesis. Normal structure of the tricuspid valve. Mild pulmonary hypertension based on right ventricular systolic pressure. Estimated peak RVSP is 39 mmHg. Mild tricuspid regurgitation. Normal pericardium with no significant pericardial effusion. Electronically Signed By: Bette Ricketts MD 02/10/2025 12:53:13 PM CDT Procedure Note Bette Ricketts MD - 02/10/[address] [address] Echocardiogram Report Patient Name: KAREN ANAND : 1940 Study Date: 02/10/2025 9:32:14 AM Gender: F Tech: KATHERIN Location: Echo Lab 1 Ref Provider: VALENTE JACOB Height(Cm): BSA: Weight(Kg): Quality: Adequate Order Provider: VALENTE JACOB PROCEDURES: Echocardiographic Report: Transthoracic echocardiogram with complete 2D, M-Mode, and color Dopplerexamination. INDICATIONS: S/P TAVR and Z95.2 Presence of prosthetic heart valve. MEASUREMENTS: 2D/MM Value Range Doppler ValueRange EF Teich MM 69.3 % [ 54.0 - 74.0 ] GARTH Vmax 2.59cm2 EF Mod BP 70 % [ 54 - 74 ] AV Mean PG 5 mmHg LVIDd MM 3.55 cm [ 3.80 - 5.20 ] AV Peak Cody 1.42 m/s[ 1.00 - 1.70 ] LVIDs MM 2.20 cm [ 2.20 - 3.50 ] AV VTI 23.01cm LVPWd MM 1.47 cm [ 0.60 - 0.90 ] LVOT Diam 2.34cm IVSd MM 1.35 cm [ 0.60 - 0.90 ] LVOT Peak Cody 0.86 m/s[ 0.70 - 1.10 ] LA Dimension MM 3.44 cm [ 2.70 - 3.80 ] LVOT VTI 16.16cm AoR Diam MM 3.58 cm [ 2.70 - 3.70 ] MV E Peak Cody 1.24 m/s[ 0.60 - 1.30 ] MV A Peak Cody 1.72 m/s [ 1.00 - 1.20 ] MV Mean PG 6 mmHg MV PHT 54 msec [ 20 - 100 ] MVA 4.10 MV Decel Time 94 msec [ 104 - 258 ] PV Peak Cody 1.13 m/s [ 0.40 - 0.80 ] HI Peak Cody 0.97 m/s TR Peak Cody 2.78 m/s [ 1.00 - 2.80 ] TR Peak PG 31 mmHg RVSP 39.00 mmHg [ 10.00 - 36.00 ] E` 0.03 m/s E/E` 37.98 [ <= 10.00 ] PA Pressure 39.00 mmHg [ 10.00 - 36.00 ] 2D/MM Value Range Doppler ValueRange - FINDINGS: Atrial Septum: Normal atrial septum. Left Ventricle: Mild concentric left ventricular hypertrophy. Reduced left ventricularcavity size. Hyperdynamic left ventricular function. No focal wall motionabnormalities. Impaired diastolic relaxation Grade I. Ejection fraction is measured at 70 %. Left Atrium: The left atrium is normal in size. Right Ventricle: Normal right ventricular size. Normal right ventricular systolic function.Linear artifact in right ventricle suggestive of catheter(s), pacemaker lead(s),or ICD lead(s). Right Atrium: The right atrium is normal in size. Aortic Valve: Aortic cusps appear mildly sclerotic. Trace aortic valve regurgitation.Normal appearing aortic valve prosthesis. Normal appearing aortic valve bioprosthesis. Mitral Valve: Mitral valve leaflets appear mildly thickened. Mild mitral annularcalcification. Trivial regurgitation of the mitral valve. Pulmonic Valve: Normal structure of the pulmonic valve. Trivial regurgitation in thepulmonic valve. Tricuspid Valve: Normal structure of the tricuspid valve. Mild pulmonary hypertension basedon right ventricular systolic pressure. Estimated peak RVSP is 39 mmHg. Mildtricuspid regurgitation. Pericardium: Normal pericardium with no significant pericardial effusion. Aorta: Ascending aorta is normal. Descending aorta is normal. There is mildatherosclerosis in the aortic root. IVC: Normal size and normal respiratory collapse consistent with normal rightatrial pressure (<5 mmHg). Pulmonary Artery: Pulmonary artery not well visualized. CONCLUSIONS: Mild concentric left ventricular hypertrophy. Reduced left ventricularcavity size. Hyperdynamic left ventricular function. No focal wall motionabnormalities. Impaired diastolic relaxation Grade I. Ejection fraction is measured at 70 %. Normal right ventricular size. Normal right ventricular systolic function.Linear artifact in right ventricle suggestive of catheter(s), pacemaker lead(s),or ICD lead(s). Mitral valve leaflets appear mildly thickened. Mild mitral annularcalcification. Trivial regurgitation of the mitral valve. Trace aortic valve regurgitation. Normal appearing aortic valveprosthesis. Normal appearing aortic valve bioprosthesis. Normal structure of the tricuspid valve. Mild pulmonary hypertension basedon right ventricular systolic pressure. Estimated peak RVSP is 39 mmHg. Mildtricuspid regurgitation. Normal pericardium with no significant pericardial effusion. Electronically Signed By: Bette Ricketts MD 02/10/2025 12:53:13 PM CDT us Valente Jacob MD CV ECHO PROCEDURES Final Re sult * DEVICE CHECK - IN OFFICE (02/04/2025 1:04 PM NEEDLE LOOM OPERATOR HELPER) Anatomical Region Laterality Modality Other Narrative 02/11/2025 1:50 PM CDT Images from the original result were not included. 02/04/2025 [employer] in-office device check The complete report is attached to this Result Text in Forensic Chemist us Valente Jacob MD CV CARDIAC SERVICES PROCEDU RES Final Result * (ABNORMAL) eGFR (01/14/2025 4:56 AM NEEDLE LOOM OPERATOR HELPER) eGFR 34(L) >=60 mL/min/1. 73 m2 Comment: Interpretive Data Reference Interval Normal >/= 90 mL/min/1.73m2 Mildly decreased* 60 - 89 mL/min/1.73m2 Mildly to moderately decreased 45 - 59 mL/min/1.73m2 Moderately to severely decreased 30 - 44 mL/min/1.73m2 Severely decreased 15 - 29 mL/min/1.73m2 Kidney Failure < 15 mL/min/1.73m2 *Relative to young adult level Estimated glomerular filtration rate is determined by the 2020 CKD-EPI equation recommended by the National Kidney Foundation (A Unifying Approach to GFR Estimation: Recommendations of the NKF-ASK Task Force on Reassessing the Inclusion of Race in Diagnosing Kidney Disease, JASN 2020). The CKD-EPI equation should not be used for patients with unstable renal function and has not been validated in children and those over 70. Current interpretive data was last reviewed 2021. Blood 01/14/2025 4:56 AM NEEDLE LOOM OPERATOR HELPER 01/14/2025 5:09 AM NEEDLE LOOM OPERATOR HELPER Malik Reddy MD LAB BLOOD ORDERABLES Final Resu lt [facility] [id number] Department [place] [address] * (ABNORMAL) POCT hemoglobin A1c (12/10/2024 9:03 AM NEEDLE LOOM OPERATOR HELPER) Hemoglobin A1C, POC 8.0 4.0 - 5.6 % Capillary blood 12/10/2024 9 :03 AM NEEDLE LOOM OPERATOR HELPER Gopi Severino MD POINT OF CARE TEST ORDERABLES Fi nal Result * (ABNORMAL) Albumin Creatinine Ratio, Urine (05/17/2023 12:47 PM CDT) Albumin Ur 24.0 mg/L [facility] ([place]) Comment: Interpretive Data No reference range established. Current interpretive data was last revised 2019. Testing performed by: [facility], [address] [place] [address]., [id number] Creatinine Ur 52.5 mg/dL [facility] ([place]) Comment: Interpretive Data No reference range established. Current interpretive data was last revised 2019. Testing performed by: [facility], [address] [place] [address]., [id number] Albumin Creatinine Ratio, Ur 46(H) 1 - 29 mg/g [facility] ([place]) Comment:Testing performed by : [facility], [address] [place] [address]., [id number] Urine 05/17/2023 12:4 7 PM CDT 05/17/2023 3:45 PM CDT us Gopi Severino MD LAB URINE ORDERABLES Final Resul t [facility] ([place]) 1 [facility] [place] [address] * (ABNORMAL) Lipid panel (05/17/2023 12:47 PM CDT) Cholesterol 121 30 - 199 mg/dL [facility] ([place]) Comment: Interpretive Data Ages < or = 19 years Acceptable: <170 mg/dL Borderline high: 170-199 mg/dL High: >or= 200 mg/dL Ages > or = 20 years Desirable: <200 mg/dL Borderline high: 200-239 mg/dL High: >or= 240 mg/dL Literature References: 1. Expert Panel on Integrated Guidelines for Cardiovascular Health and Risk Reduction in Children and Adolescents. Pediatrics 2011;128:S213 2. NCEP Expert Panel. Circulation 2004;110:227 Current Interpretive Data was last revised on 2018. Triglycerides 109 <=149 mg/dL [facility] ([place]) Comment: Interpretive Data Ages < or = 9 years Acceptable: <75 mg/dL Borderline high: 75-99 mg/dL High: >or= 100 mg/dL Ages 10 to 20 years Acceptable: <90 mg/dL Borderline high: 90-129 mg/dL High: >or= 130 mg/dL Ages > or = 20 years Desirable: <150 mg/dL Borderline high: 150-199 mg/dL High: 200-499 mg/dL Very high: >or= 499 mg/dL Literature References: 1. Expert Panel on Integrated Guidelines for Cardiovascular Health and Risk Reduction in Children and Adolescents. Pediatrics 2011;128:S213 2. NCEP Expert Panel. Circulation 2004;110:227 Current Interpretive Data was last revised on 2018. HDL 38(L) >=40 mg/dL [facility] [place] ([place]) Comment: Interpretive Data Ages < or = 19 years Acceptable: >45 mg/dL Borderline low: 40-45 mg/dL Low: <40 mg/dL Ages > or = 20 years Desirable: >or= 60 mg/dL Low: <40 mg/dL Literature References: 1. Expert Panel on Integrated Guidelines for Cardiovascular Health and Risk Reduction in Children and Adolescents. Pediatrics 2011;128:S213 2. NCEP Expert Panel. Circulation 2004;110:227 Current Interpretive Data was last revised on 2018. LDL, calculated 61 <=129 mg/dL [facility]MIENT[facility] ([place]) Comment: Interpretive Data Ages < or = 19 years Acceptable: <110 mg/dL Borderline high: 110-129 mg/dL High: >or= 130 mg/dL Ages > or = 20 years Optimal: <100 mg/dL Near optimal: 100-129 mg/dL Borderline high: 130-159 mg/dL High: >160 mg/dL Literature References: 1. Expert Panel on Integrated Guidelines for Cardiovascular Health and Risk Reduction in Children and Adolescents. Pediatrics 2011;128:S213 2. NCEP Expert Panel. Circulation 2004;110:227 Current Interpretive Data was last revised on 2018. Non-HDL Cholesterol 83 mg/dL [facility]MIENT[facility] ([place]) Comment: Interpretive Data Ages < or = 19 years Acceptable: <120 mg/dL Borderline high: 120-144 mg/dL High: >145 mg/dL Ages > or = 20 years When triglycerides are >200 mg/dL, Non-HDL cholesterol is a secondary target of therapy with treatment goals that are 30 mg/dL greater than the LDL cholesterol target. Literature References: 1. Expert Panel on Integrated Guidelines for Cardiovascular Health and Risk Reduction in Children and Adolescents. Pediatrics 2011;128:S213 2. NCEP Expert Panel. Circulation 2004;110:227 Current Interpretive Data was last revised on 2018. Chol/HDL ratio 3 MARY LOUKIRILL Areli SARMIENTO ([place]) Blood 05/17/2023 12:4 7 PM CDT 05/17/2023 2:08 PM CDT us Gopi Severino MD LAB BLOOD ORDERABLES Final Resul t [facility] [place] ([place]) 1 [facility] [place] [address] from Last 3 Months or Most Recently Relevant to Health Maintenance Additional Health Concerns Infection Onset Date Last Indicated MDR gram neg/ESBL 02/14/2023 03/04/2023 Insurance MEDICARE [facility] MEDICARE [employer] [facility] MEDICARE [facility] Advance Directives For more information, please contact: [phone] * LIMITED - No CPR (Latest Code Status on File) Date Activated Date Inactivated Comments 11/17/2024 4:52 PM 11/21/2024 6:54 PM Question Answer Comments Provide aggressive medical m anagement before a full cardiopulmonary arrest occurs. Use antibiotics, IV Fluids, and medical treatment unless specifically selected below: No intubation * LIMITED - No CPR Date Activated Date Inactivated Comments 08/26/2024 11:45 AM 11/17/2024 11:24 AM Question Answer Comments Cardio Resuscitation: No Chest Compressions Ventilation: No Intubation * Full Code Date Activated Date Inactivated Comments 09/14/2022 3:23 PM 09/17/2022 4:24 PM * Full Code Date Activated Date Inactivated Comments 09/14/2022 1:09 PM 09/14/2022 3:23 PM Care Teams Production Administrative Assistant Relationship Specialty Start Date End Date Gopi Severino MD PCP - General Family Medicine 07/27/22 Gerber Dixon MD Consulting Physician Infectious Diseases 03/07/23
--- OUTSIDE RECORDS SUMMARY | 2025-05-03 12:49 | XMS_ITS | Clinical Summary ---
Author Organization [facility] Medical Office Building A Address [address] [place] [address] Care Team Providers Care Public Relations Assistant Name Role Phone Gopi Severino MD Primary Care Provider [phone] Greber Dixon MD Unavailable [phone] Allergies Active Allergy Reactions Criticality Noted Date Comments Adhesive Tape-Silicones Rash Medium 08/09/2022 Medications blood-glucose meter kitIndications: Type 2 diabetes mellitus with hyperglycemia, without long-term current use of insulin (HCC) Test daily and as needed, max 2 times daily. Dx: dm2 1 kit 09/12/20 22 Active lancets 32 gauge miscIndications :Type 2 diabetes mellitus with hyperglycemia, without long-term current use of insulin (HCC) Test daily and as needed, up to twice daily; dx DM2 100 each 3 09/12/20 22 Active isosorbide mononitrate ER (IMDUR) 30 [...] 01/16/2024 Assessment & Plan (01/16/2024 11:35 AM HOSPITAL ACCOUNT LIAISON): CT Neck MRI Brain Left vocal fold paralysis Modified barium swallow study Hoarseness or changing voice 01/16/2024 Assessment & Plan (01/16/2024 11:35 AM HOSPITAL ACCOUNT LIAISON): CT Neck MRI Brain Left vocal fold [...] (09/14/2022): Added automatically from request for surgery [id number] Assessment & Plan (08/19/2023 2:16 PM CDT): S/p cath, ondapt, statin, Bblocker Following with cardio Asymptomatic at this time Assessment & Plan (11/07/2022 11:47 AM HOSPITAL ACCOUNT LIAISON): S/p cath, ondapt, statin, Bblocker Following with cardio Asymptomatic at this time Chronic venous insufficiency 08/29/2022 Assessment & Plan (08/30/2022 7:20 AM CDT): Continue compression therapy. 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 I have sent a referral [...] protection Assessment & Plan (12/10/2024 9:06 AM HOSPITAL ACCOUNT LIAISON): BP Readings from Last 3 Encounters: 12/10/24 [...] mg. Assessment & Plan (02/06/2023 11:28 AM HOSPITAL ACCOUNT LIAISON): Continue metoprolol xl 50 mg every day, and lasix 20 mg every day Assessment & Plan (11/07/2022 11:47 AM HOSPITAL ACCOUNT LIAISON): BP Readings from Last 3 Encounters: 11/07/22 [...] day Assessment & Plan (11/20/2023 3:18 PM HOSPITAL ACCOUNT LIAISON): BP Readings from Last 3 Encounters: 11/20/23 [...] above Assessment & Plan (02/06/2023 11:28 AM HOSPITAL ACCOUNT LIAISON): BP Readings from Last 3 Encounters: 02/06/23 [...] pending Assessment & Plan (12/10/2024 9:06 AM HOSPITAL ACCOUNT LIAISON): Lab Results Component Value Date CHOL 121 [...] mg. Assessment & Plan (02/06/2023 11:27 AM HOSPITAL ACCOUNT LIAISON): Lab Results Component Value Date CHOL 150 [...] 80 Assessment & Plan (11/07/2022 11:48 AM HOSPITAL ACCOUNT LIAISON): Lab Results Component Value Date CHOL 150 [...] counseling. Assessment & Plan (12/10/2024 9:20 AM HOSPITAL ACCOUNT LIAISON): Wt Readings from Last 3 Encounters: 12/10/24 [...] counseling. Assessment & Plan (11/20/2023 3:18 PM HOSPITAL ACCOUNT LIAISON): Wt Readings from Last 3 Encounters: 11/20/23 [...] counseling. Assessment & Plan (02/06/2023 11:32 AM HOSPITAL ACCOUNT LIAISON): Wt Readings from Last 3 Encounters: 02/06/23 85.2 kg (187 lb 14.4 oz) 01/15/23 82.6 kg (182 lb) 11/07/22 83 kg (183 lb) BMI Readings from Last 3 Encounters: 02/06/23 28.57 kg/m 01/15/23 27.67 kg/m 11/07/22 28.66 kg/m At goal of bmi <30 Continue diet and exercise BMI Follow-up includes: nutrition counseling and exercise counseling. Assessment & Plan (11/07/2022 11:47 AM HOSPITAL ACCOUNT LIAISON): Wt Readings from Last 3 Encounters: 11/07/22 [...] 08/09/2022 Assessment & Plan (12/10/2024 9:06 AM HOSPITAL ACCOUNT LIAISON): S/p nstemi Follow up cardio Appt next week Assessment & Plan (11/07/2022 11:48 AM HOSPITAL ACCOUNT LIAISON): Following with cardio on dapt Assessment & [...] of DM - HLD, PAD, hx of ID, CKD stage 3 Chemistry Lab Results Component [...] units Assessment & Plan (12/10/2024 9:21 AM HOSPITAL ACCOUNT LIAISON): Lab Results Component Value Date HGBA1C 8.0 12/10/2024 HGBA1C 7.2 08/26/2024 HGBA1C 8.1 02/20/2024 Lab Results Component Value Date LDLCALC 61 05/17/2023 CREATININE 1.50 (H) 11/30/2024 Not at goal at this time C/w tresiba 10units nightly - glipizide 5 mg qam, januvia 100 mg every day -losartan 25 mg every day for renal protection Has complicatiuons of DM - HLD, PAD, hx of ID, CKD stage 3 Chemistry Lab Results Component [...] of DM - HLD, PAD, hx of ID, CKD stage 3 Chemistry Lab Results Component [...] of DM - HLD, PAD, hx of ID, CKD stage 3 Chemistry Lab Results Component [...] incorrectly Assessment & Plan (11/20/2023 3:18 PM HOSPITAL ACCOUNT LIAISON): Lab Results Component Value Date HGBA1C 8.0 [...] of DM - HLD, PAD, hx of ID, CKD stage 3 Chemistry Lab Results Component [...] of DM - HLD, PAD, hx of ID, CKD stage 3 Chemistry Lab Results Component [...] of DM - HLD, PAD, hx of ID, CKD stage 3 Chemistry Lab Results Component [...] of DM - HLD, PAD, hx of ID, CKD stage 3 Chemistry Lab Results Component [...] admission: Hyperlipidemia, peripheral arterial disease, history of ID, CKD stage 3 B Assessment & Plan (02/06/2023 11:56 AM HOSPITAL ACCOUNT LIAISON): Lab Results Component Value Date HGBA1C 10.1 02/06/2023 HGBA1C 8.4 (H) 08/09/2022 Lab Results Component Value Date LDLCALC 96 09/14/2022 CREATININE 300 02/06/2023 Worsening at this time Was previously on metformin and did not tolerate it due to diarrhea Will start jardiance 10 mg every day, increase glipizide Assessment & Plan (11/07/2022 11:47 AM HOSPITAL ACCOUNT LIAISON): Lab Results Component Value Date HGBA1C 8.4 [...] STEMI (ST elevation myocardial infarction) 09/14/2022 08/19/2023 Encounters Date Type Department Care Team Description 04/23/2025 Telephone [facility] Medical [facility] Primary Care at [address] [place] [address] Gopi Severino MD Medical Question/Miscellane ous 04/16/2025 3:30 PM CDT Ancillary Procedure [facility] Technologist [address] [place] [phone] CHB (complete heart block) (HCC); Pacemaker 03/18/2025 Telephone [facility] Primary Care at [address] [place] [address] Gopi Severino MD Additional Services Or Orders 03/09/2025 2:30 PM CDT Office Visit [facility] Techn[facility] at [address] [place] [address] Valente Jacob MD S/P TAVR (transcatheter aortic valve replacement) (Primary Dx) 03/02/2025 11:15 AM CDT Office Visit [facility] Primary Care at [address] [phone] Gopi Severino MD Type 2 diabetes mellitus [...] stress and urge urinary incontinence 02/16/2025 Telephone [facility] Primary Care at [address] [address] Gopi Severino MD Medical Question/Miscellane ous 02/10/2025 10:16 AM CDT - 02/10/2025 11:59 PM CDT Hospital Encounter [facility] Cardiology [address] [place] [id number] S/P TAVR (transcatheter aortic valve replacement) Discharge Disposition: Discharge to home or self care 02/04/2025 12:00 PM HOSPITAL ACCOUNT LIAISON Ancillary Procedure [facility] Technologist at [address] [address] Pacemaker reprogramming/check (Primary Dx); CHB (complete heart block) ([facility]); Pacemaker 02/04/2025 12:00 PM HOSPITAL ACCOUNT LIAISON Office Visit [facility] Technologist at [address] [phone] Kristopher Cortes MD AV block, 2nd degree (Primary Dx) from Last 3 Months Immunizations Immunization Administration Dates Next Due Influenza, Quadrivalent, Hig h Dose, Preservative Free, Intrr 08/19/2023,09/12/2022 Influenza, Trivalent, High D ose, Split, Preservative Free, Intramuscular 08/26/2024 Influenza, Unspecified 08/09/2022(Deferr ed: Patient Refused),01/30/2022(Deferred: Patient Refused),09/01/2021(Deferred: Patient Refused),07/13/2019,08/05/2018 Pneumococcal Conjugate Pcv20 08/26/2024 Pneumococcal Polysaccharide PPV23 03/23/2020 Pneumococcal, Unspecified 11/07/2022(Deferred: P atient Refused) Surgical History Surgery Date Site/Laterality Comments AMPUTATION FOOT / TOE 05/02/2022 - 05/31/2022 Left FEMORAL BYPASS 05/02/2022 - 05/31/2022 Left VASCULAR SURGERY JOINT REPLACEMENT bilat hip, right knee CATARACT EXTRACTION, BILATERAL CARDIAC CATHETERIZATION 01/13/2025 Chest/N/A Procedure: TAVR - PERCUTANEOUS FEMORAL 51093 -- 23 mm S3 Ultra, Vascular only; Surgeon: Malik Reddy MD; Location: CARDIAC CHEMICAL DEPENDENCY ATTENDANT; Service: Cardiovascular; Laterality: N/A; Medical devices from this surgery are in the Medical Devices section. CARDIAC ELECTROPHYSIOLOGY PROCEDURE 01/14/2025 N/A Procedure: IMPLANT DUAL CHAMBER PPM SYSTEM W/ DUAL ELECTRODES (GEN AND LEADS, NEW OR REPLACE) [id number]; Surgeon: Kristopher Cortes MD; Location: CARDIAC CHEMICAL DEPENDENCY ATTENDANT; Service: Cardiovascular; Laterality: N/A; Medical devices from this surgery are in the Medical Devices section. Medical History Medical History Date Comments Hypertension Coronary artery disease Diabetes mellitus (HCC) Motion sickness CHF (congestive heart failure) (HCC) Hyperlipidemia Myocardial infarction (HCC) NSTEMI (non-ST elevated myocardial infarction) ( HCC) Syncope long time ago Chronic kidney disease, stage 3b (HCC) Type 2 diabetes mellitus (HCC) Aortic valve stenosis Urinary incontinence Depression Vocal fold paralysis, left Mitral valve insufficiency Chronic venous insufficiency Peripheral arterial disease Cataract Difficulty swallowing Family History Medical History Relation Name Comments Cancer Father Heart attack Maternal Grandfather Heart disease Maternal Grandmother Cancer Mother Diabetes Mother's Sister Relation Name Status Comments Father Maternal Grandfather Maternal Grandmother Mother Mother's Sister Social History Tobacco Use Types Packs/Day Years Used Date Smoking Tobacco: Never Smokeless Tobacco: Never Tobacco Cessation:Counseling Given: Not Answered [facility] Utilities Answer Date Recorded In the past 12 months has e [employer], gas, oil, or water [employer] threatened to shut off services in your home? No 01/15/2025 Social Connection and Isolation Panel [NHANES] A nswer Date Recorded In a typical week, how many times do you talk on the phone with family, friends, or neighbors? Once a week 01/15/2025 How often do you get together with friends or re latives? Never 01/15/2025 How often do you attend oriental orthodox or yazdanism serv ices? Never 01/15/2025 Do you belong to any clubs o r organizations such as oriental orthodox groups, unions, fraternal or athletic groups, or [...] any time in the past 12 m [facility], were you homeless or living in a custodial (including now)? No 01/15/2025 Personal Safety Answer [...] on file Legal Sex Female 1:13 PM HOSPITAL ACCOUNT LIAISON Gender Identity Not on file Sexual Orientation Not on file Obstetrics History Last Filed Vital Signs Vital Sign Reading Time Taken Comments Blood Pressure 143/75 03/09/2025 3:09 PM CDT Pulse 85 03/09/2025 3:09 PM CDT Temperature 37 C (98.6 F) 01/15/2025 8:16 AM HOSPITAL ACCOUNT LIAISON Respiratory Rate 16 03/09/2025 3:09 PM CDT Oxygen Saturation 95% 03/02/2025 11: 08 AM CDT Inhaled Oxygen Concentration - - Weight 94.3 kg (207 lb 14.4 oz) 03/09/2025 3:09 PM CDT Height 170.2 cm (5' 7) 03/09/2025 3:09 PM CDT Body Mass Index 32.56 03/09/2025 3:09 PM CDT Plan of Treatment Health Maintenance Due Date Last Done Comments Osteoporosis Screening-Bone Density Scan 1940 Dilated Eye Exam 1940 Foot Exam 1940 DTaP/Tdap/Td Vaccine (1 - Tdap) 1951 Hepatitis B Screening 1958 Zoster Vaccine (1 of 2) 1990 Albumin Creatinine Ratio, Urine 05/17/2024 3, 05/15/2023 Lipid Panel 05/17/2024 05/17/2023, 09/01, 08/09/2022 Hemoglobin A1C 06/09/2025 12/10/2024, 08/03, 02/20/2024, Additional history exists Well Visit 65+ 08/26/2025 08/26/2024, 08/19/2023 eGFR 01/14/2026 01/14/2025, 01/02, 01/11/2025, Additional history exists Depression Screening 03/02/2026 03/02/2025, 12/10/2024, 08/26/2024, Additional history exists Fall Risk Assessment 03/02/2026 03/02/2025, 01/15/2025, 12/10/2024, Additional history exists Influenza Vaccine Completed 08/26/2024, , 09/12/2022, Additional history exists Pneumococcal vaccine 65+ Completed 08/26/2024, 03/03 Medical Devices Implanted Type Area Instructor Physical Device Identifier Shelf Expiration Date Model / Serial / Lot Biotronik Inc Active Fixation Steroid Eluting Is 1 Connector Latex Free Sterile Atrial Ventricular Atrial Ventricular Solia 53cm [id number] - [id number] - [id number] Implanted:Qty: 1 on 01/14/2025 by Kristopher Cortes MD at [facility] Lead N/A: Atria [employer]otron[employer] Inc 01/01/2027 [id number] / [id number] / Biotronik Inc Active Fixation Steroid Eluting Is 1 Connector Latex Free Sterile Atrial Ventricular Atrial Ventricular Solia 60cm [id number] - [id number] - [id number] Implanted:Qty: 1 on 01/14/2025 by Kristopher Cortes MD at [facility] Lead N/A: Ventricle [employer]ot[employer]ik Inc 10/31/2026 [id number] / [id number] / Terumo [employer] Chase Angio-Seal Vip 6fr Closere Device 073722 - [id number] Implanted:Qty: 1 on 11/18/2024 by Valente Jacob MD at [facility] Other - see comments [employer] Chase 07/06/2025 [id number] / / [id number] Medtronic Inc Tyrx Absorbable Antibacterial Envelope Med 2.7x2.5in [id number] - [id number] - [id number] Implanted:Qty: 1 on 01/14/2025 by Kristopher Cortes MD at [facility] Other - see comments Left: Chest Medtronic Inc 10/10/2025 [id number] / [id number])24 1106(10) [id number] / [id number] Description:Absorbable Antib acterial Envelope Biotronik Inc Pacemaker Implantable Amvia Edge Dual Chamb Rate-Responsive [id number] - [id number] - [id number] Implanted:Qty: 1 on 01/14/2025 by Kristopher Cortes MD at [facility] Pacemaker Left: Chest Biotronik Inc 05/31/2026 [id number] / [id number] / TerTunessence Medical OncoPep Angio-Seal Vip 6fr Closere Device [id number] - [id number] Implanted:Qty: 1 on 09/14/2022 by Valente Jacob MD at [facility] [employer] 05/01/2023 [id number] / / [id number] Matos V[employer] System Closure Repair Femoral Artery Suture Mediated Perclose Prostyle 64674-40 - [id number] Implanted:Qty: 1 on 01/13/2025 by Malik Reddy MD at [facility] [employer] 10/01/2026 [id number] / / [id number] Matos V[employer] System Closure Repair Femoral Artery Suture Mediated Perclose Prostyle 89764-40 - [id number] Implanted:Qty: 1 on 01/13/2025 by Malik Reddy MD at [facility] [employer] 10/01/2026 [id number] / / [id number] [employer] Valve Aortic Trnscath Brayan 3 Ultra Resilia 23mm [id number] - [id number] - [id number] Implanted:Qty: 1 on 01/13/2025 by Malik Reddy MD at [facility] [employer] 07/02/2027 [id number] / [id number] / Rain Angio-Seal Vip 6fr Closere Device [id number] - [id number] Implanted:Qty: 1 on 01/13/20[facility]/11/2025 [id number] / / Rain Angio-Seal Vip 6fr Closere Device [id number] - [id number] Implanted:Qty: 1 on 01/13/2025 [facility] 08/11/2025 [id number] / / Procedures Procedure Name Priority Date/Time Associated Diagnosis Comments DEVICE CHECK - REMOTE Routine 04/15/2025 2:48 PM CDT CHB (complete heart block) (HCC) Pacemaker TRANSTHORACIC ECHO (TTE) COMPLETE W DOPPLER/CF WO CONTRAST Routine 02/10/2025 11:12 AM CDT S/P TAVR (transcatheter aortic valve replacement) DEVICE CHECK - IN OFFICE Routine 02/04/2025 1:04 PM HOSPITAL ACCOUNT LIAISON CHB (complete heart block) (HCC) Pacemaker EGFR Routine 01/14/2025 4:56 AM HOSPITAL ACCOUNT LIAISON POCT HEMOGLOBIN A1C Routine 12/10/2024 9 :03 AM HOSPITAL ACCOUNT LIAISON Type 2 diabetes mellitus with stage 3b [...] the original result were not included. 04/15/2025 [employer] quarterly remote device check NOTE The following shows snippets from the complete quarterly report. The complete report in its entirety is attached to this Result Text in Bearing Grinder Presenting EGM Last in-office check 02/04/2025 6 month f/u office visit 09/24/2026 DC PPM, implanted 01/14/2025 Battery longevity = 100% AT/AF burden 0% PVC burden 0% Ap 2% RVp 99%(CHB) No event/alert episodes recorded since last in-office check on 02/04/2025. Reviewed By Brittney Santillan [employer] at 3:49 PM Review and Recommendations below [...] AM CDT Narrative 02/10/2025 12:54 PM CDT [address] [address] Echocardiogram Report Patient Name: KAREN ANAND : [...] 1.13 m/s [ 0.40 - 0.80 ] [place] 0.97 m/s TR Peak [place] [...] Procedure Note Bette Ricketts MD - 02/10/[address] [address] Echocardiogram Report Patient Name: KAREN ANAND : [...] 1.13 m/s [ 0.40 - 0.80 ] [place] Peak [place] 0.97 m/s TR Peak Cody [...] Bette Ricketts MD 02/10/2025 12:53:13 PM CDT Valente Jacob MD CV ECHO PROCEDURES Final Re sult * DEVICE CHECK - IN OFFICE (02/04/2025 1:04 PM HOSPITAL ACCOUNT LIAISON) Anatomical Region Laterality Modality Other Narrative 02/11/2025 1:50 PM CDT Images from the original result were not included. 02/04/2025 [employer]ot[employer] in-office device check The complete report is attached to this Result Text in Bearing Grinder Valente Jacob MD CV CARDIAC SERVICES PROCEDU RES Final Result * (ABNORMAL) eGFR (01/14/2025 4:56 AM HOSPITAL ACCOUNT LIAISON) eGFR 34(L) >=60 mL/min/1. 73 m2 Comment: [...] last reviewed 2021. Blood 01/14/2025 4:56 AM HOSPITAL ACCOUNT LIAISON 01/14/2025 5:09 AM HOSPITAL ACCOUNT LIAISON Malik Reddy MD LAB BLOOD ORDERABLES Final Resu lt [facility]OM[facility] [id number] [place] [address] Department [place] [address] * (ABNORMAL) POCT hemoglobin A1c (12/10/2024 9:03 AM HOSPITAL ACCOUNT LIAISON) Hemoglobin A1C, POC 8.0 4.0 - 5.6 % Capillary blood 12/10/2024 9 :03 AM HOSPITAL ACCOUNT LIAISON Result [facility] Gopi Severino MD POINT OF CARE TEST ORDERABLES Fi nal Result * (ABNORMAL) Albumin Creatinine Ratio, Urine (05/17/2023 12:47 PM CDT) Albumin Ur 24.0 mg/L [facility]OMASA H ([place]) Comment: Interpretive Data No reference range established. Current interpretive data was last revised 2019. Testing performed by: [facility], [address] [place] [address]., [id number] Creatinine Ur 52.5 mg/dL TOMASA SARMIENTO ([place]) Comment: Interpretive Data No reference range established. Current interpretive data was last revised 2019. Testing performed by: [facility], [address] [place] [address]., [id number] Albumin Creatinine Ratio, Ur 46(H) 1 - 29 mg/g TOMASA SARMIENTO ([place]) Comment:Testing performed by : [address] [address] Urine 05/17/2023 12:4 7 PM CDT 05/17/2023 3:45 PM CDT Gopi Severino MD LAB URINE ORDERABLES Final Resul t TOMASA SARMIENTO ([place]) 1 [facility] Department [place] [address] * (ABNORMAL) Lipid panel (05/17/2023 12:47 PM CDT) Cholesterol 121 30 - 199 mg/dL TOMASA SARMIENTO ([place]) Comment: Interpretive Data [...] on 2018. HDL 38(L) >=40 mg/dL [facility]A FRANCO H ([place]) Comment: Interpretive Data Ages < or [...] last revised on 2018. Chol/HDL ratio 3 SHANTHI SARMIENTO ([place]) Blood 05/17/2023 12:4 7 PM CDT 05/17/2023 2:08 PM CDT us Gopi Severino MD LAB BLOOD ORDERABLES Final Resul t TOMASA SARMIENTO ([place]) 1 [facility] Department [place] [address] from Last 3 Months or Most Recently Relevant to Health Maintenance Additional Health Concerns Infection Onset Date Last Indicated MDR gram neg/ESBL 02/14/2023 03/04/2023 Insurance MEDICARE [facility] MEDICARE [facility] MEDICARE [facility] Advance Directives For more information, please contact: [phone] * LIMITED - No CPR (Latest Code [...] 1:09 PM 09/14/2022 3:23 PM Care Teams Public Relations Assistant Relationship Specialty Start Date End Date Gopi Severino MD PCP - General Family Medicine 07/27/22 Gerber Dixon MD Consulting Physician Infectious Diseases 03/07/23
--- OUTSIDE RECORDS SUMMARY | 2025-05-03 12:49 | XMS_ITS | Encounter Summary ---
Author Organization [facility] Healthcare Address [address] [place] [address] Care Team Providers Care Software Quality Automation Engineer Name Role Phone Gopi Severino MD Primary Care Provider [phone] Gerber Dixon MD Unavailable [phone] Encounter Details Date Type Department Care Team (Late st Contact Info) Description 12/14/2024 Cardiology Conference Cardiology Jerod Hatch MD [address] [place] [address] [id number] Social History Tobacco Use Types Packs/Day Years Used Date Smoking Tobacco: Never Smokeless Tobacco: Never [facility] Utilities Answer Date Recorded In the past 12 months has [employer] electric, gas, oil, or water company threatened to shut off services in your home? No 11/19/2024 Social Connection and Isolat ion Panel [NHANES] Answer Date Recorded In a typical week, how many times do you talk on the phone with family, friends, or neighbors? More than three times a week 11/19/2024 How often do you get togethe r with friends or relatives? Once a week 11/19/2024 How often do you attend chur ch or zoroastrianism services? Never 11/19/2024 Do you belong to any clubs o r organizations such as zoroastrianism groups, unions, fraternal or athletic groups, or school groups? No 11/19/2024 How often do you attend meet ings of the clubs or organizations you belong to? Never 11/19/2024 Are you , , di vorced, , never , or living with a partner? 11/19/2024 AUDIT-C Answer Date Recorded Q1: How often do you have a drink containing alcohol? Never 11/17/2024 Q2: How many drinks containi ng alcohol do you have on a typical day when you are drinking? Patient does not drink Q3: How often do you have si x or more drinks on one occasion? Never 11/17/2024 Overall Financial Resource Strain (CARDIA) Answe r Date Recorded How hard is it for you to pa y for the very basics like food, housing, medical care, and heating? Not hard at all 11/19/2024 PHQ-2 Answer Date Recorded PHQ-2 Total Score (If total score is 3 or more points, staff should administer the PHQ-9) 0 12/10/2024 Hunger Vital Sign Answer Date Recorded Within the past 12 months, y ou worried that your food would run out before you got the money to buy more. Never true 11/19/20 24 Within the past 12 months, t he food you bought just didn't last and you didn't have money to get more. Never true 11/19/2024 PRAPARE - Transportation Answer Date Re corded In the past 12 months, has l ack of transportation kept you from medical appointments or from getting medications? No 11/01 In the past 12 months, has l ack of transportation kept you from meetings, work, or from getting things needed for daily living? No 11/19/2024 Housing Stability Vital Sign Answer Rito e Recorded In the last 12 months, was t here a time when you were not able to pay the mortgage or rent on time? No 11/19/2024 In the past 12 months, how m any times have you moved where you were living? 0 11/19/2024 At any time in the past 12 m [facility], were you homeless or living in a prison (including now)? No 11/19/2024 Personal Safety Answer Date Recorded Have you ever been in or are you currently in a harmful physical or emotional relationship or is someone making you feel afraid or unsafe? Denies 11/17/2024 Education Answer Date Recorded What is the highest level of school you have completed or the highest degree you have received? 12th grade 03/05/2023 Comments No Sex and Gender Information Value Date Recorded Sex Assigned at Not on file Legal Sex Female 1:13 PM HEAT AND FROST INSULATOR HELPER Gender Identity Not on file Sexual Orientation Not on file documented as of this encounter Plan of Treatment Not on file documented as of this encounter Visit Diagnoses Not on filedocumented in this encounter Additional Health Concerns Infection Onset Date Last Indicated Resolved Time MDR gram neg/ESBL 02/14/2023 03/04/2023 documented as of this encounter Care Teams Software Quality Automation Engineer Relationship Specialty Start Date End Date Gopi Severino MD PCP - General Family Medicine 07/27/22 Gerber Dixon MD Consulting Physician Infectious Diseases 03/07/23 documented as of this encounter
--- OUTSIDE RECORDS SUMMARY | 2025-05-03 12:49 | XMS_ITS | Encounter Summary ---
Author Organization [facility] Healthcare Address [address] [place] [address] Care Team Providers Care Food Preservation Scientist Name Role Phone Gopi Severino MD Primary Care Provider [phone] Gerber Dixon MD Unavailable [phone] Encounter Details Date Type Department Care Team (Late st Contact Info) Description 01/27/2025 Cardiology Conference [facility] Non-invasive Cardiac Diagnostic Testing [id number] [place], [place] [id number] Jose G Do, JESSIE Social History Tobacco Use Types Packs/Day Years Used Date Smoking Tobacco: Never Smokeless Tobacco: Never [facility] Utilities Answer Date Recorded In the past 12 months has th e electric, gas, oil, or water company threatened [...] Never 01/15/2025 How often do you attend cheondoism or confucianism serv ices? Never 01/15/2025 Do you belong to any clubs o r organizations such as cheondoism groups, unions, fraternal or athletic groups, or [...] any time in the past 12 m [facility], were you homeless or living in a [place] [facility] facility (including now)? 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
[2025-05-03 12:54] LABS: Add Urine Microscopic? YES; Appearance Urine Clear (Clear); Bilirubin Urine Negative (Negative); Blood Urine 1+ (Negative); Color Urine Light Yellow (Yellow); Glucose Urine UA 3+ (Negative); Ketones Urine Negative (Negative); Leukocyte Esterase Ur Trace LEU/UL (Negative); Nitrate Urine Positive (Negative); Protein Urine Negative (Negative); Urobilinogen Urine 0.2 mg/dL (0.2-1.0); pH Urine 5.5 (5.0-8.0)
[2025-05-03 13:01] LABS: RBC Urine None seen /hpf (0-2)
[2025-05-03 13:02] LABS: Bacteria Urine 3+ /hpf; Squamous Epithelial Cell Urine Few /hpf (Few); WBC Urine 21-50 /hpf (0-3)
== END 2025-05-03 12:41 | disposition home or self-care (01) ==
LOC: CHSLAB 12:42
PROVIDERS: Visit Provider Family Medicine
DX: R30.0 Dysuria (principal)
CPT/HCPCS: 81001; 87086; 87186